=== PATIENT | male | born 1940 | race Caucasian/White ===

== ENCOUNTER → 2017-11-23 14:54 | Outpatient (CLI) | payer MEDICARE, SELFPAY ==
--- NOTE | 2017-11-23 15:00 | RAD_ITS ---
STUDY: X-RAY - LEFT KNEE REASON FOR EXAM: Male, 77 years old. Pain TECHNIQUE: 3 view(s) of the knee. COMPARISON: None. FINDINGS: There is narrowing of the patellofemoral articulation with spurs from the superior and inferior margins of the patella. There are no fractures and no knee joint effusion. The quadriceps and patellar tendons are normal. RAD/Knee 3 Views IMPRESSION: Osteoarthritis of the knee. No knee joint effusion. No fracture Electronically Signed: Nigel Paul MD at 7:42 EDT Tel , Service support ,
== END ==
PROVIDERS: Family Provider Family Medicine; PCP Family Medicine; Referring Provider Family Medicine; Visit Provider Family Medicine
DX: M25.562 Pain in left knee (principal)
CPT/HCPCS: 73562

== ENCOUNTER → 2017-12-08 09:43 | Outpatient (CLI) | payer MEDICARE, SELFPAY ==
[2017-12-08 12:39] LABS: Anion Gap 5 (5-15); BUN 19 mg/dL (7-18); BUN/Creat Ratio 23.2 RATIO (10-20); Calcium,Total 8.7 mg/dL (8.5-10.1); Chloride 108 mmol/L (98-107); Cholesterol 154 mg/dL (200); Creatinine, Serum 0.82 mg/dL (0.70-1.30); EST Glomerular Filtration Rate 98 mL/min (>60); Est Glom Filt Rate - Afr Amer 118 mL/min (>60); Glucose 104 mg/dL (74-106); High Density Lipoprotein 29 mg/dL; Potassium 4.3 mmol/L (3.5-5.1); Sodium Level 139 mmol/L (136-145); Triglycerides 69 mg/dL; Very Low Density Lipoprotein 14 mg/dL (5-40)
== END ==
PROVIDERS: Family Provider Family Medicine; PCP Family Medicine; Visit Provider Family Medicine
DX: Z00.00 Encounter for general adult medical examination without abnormal findings (principal); I10 Essential (primary) hypertension; Z12.5 Encounter for screening for malignant neoplasm of prostate
CPT/HCPCS: 36415; 80048; 80061; 84153; G0103

== ENCOUNTER → 2018-06-26 10:41 | Outpatient (CLI) | payer MEDICARE, SELFPAY ==
--- NOTE | 2018-06-26 10:46 | RAD_ITS ---
STUDY: X-RAY - RIGHT FOOT CLINICAL: Male, 77 years old. Pain on the dorsum of the foot for one year. TECHNIQUE: 3 weight bearing view(s) of the foot. COMPARISON: None. FINDINGS: Normal talus, calcaneus, and tarsal bones. There is mild arthrosis of the visualized subtalar, talonavicular, calcaneocuboid, tarsal and tarsometatarsal articulations. Normal metatarsi. There is degenerative arthrosis of the metatarsophalangeal joint of the hallux . Normal tibial and fibular sesamoid bones. Normal interphalangeal joint of the great toe. Normal phalanges of the great toe. Normal second through fifth metatarsophalangeal joints. Normal interphalangeal joints and phalanges of the lesser toes. The soft tissue structures are unremarkable. RAD/Foot min 3 Views IMPRESSION: Mild degenerative changes of the foot without acute abnormality. Electronically Signed: Marko Roca DO at 18:29 EDT Tel [phone], Service support ,
[2018-06-26 12:59] LABS: Anion Gap 5 (5-15); BUN 17 mg/dL (7-18); BUN/Creat Ratio 20.8 RATIO (10-20); Calcium,Total 8.5 mg/dL (8.5-10.1); Chloride 107 mmol/L (98-107); Cholesterol 155 mg/dL (200); Creatinine, Serum 0.82 mg/dL (0.70-1.30); EST Glomerular Filtration Rate 98 mL/min (>60); Est Glom Filt Rate - Afr Amer 118 mL/min (>60); Glucose 104 mg/dL (74-106); High Density Lipoprotein 33 mg/dL; Potassium 4.2 mmol/L (3.5-5.1); Sodium Level 140 mmol/L (136-145); Triglycerides 103 mg/dL; Very Low Density Lipoprotein 21 mg/dL (5-40)
== END ==
PROVIDERS: Family Provider Family Medicine; PCP Family Medicine; Referring Provider Family Medicine; Visit Provider Family Medicine
DX: M79.671 Pain in right foot (principal); I10 Essential (primary) hypertension
CPT/HCPCS: 36415; 73630; 80048; 80061

== ENCOUNTER → 2018-11-24 12:44 | Outpatient (CLI) | payer MEDICARE, SELFPAY ==
[2018-11-24 14:27] LABS: Absolute Lymphocyte Count 1.97 X10^3/uL (0.83-4.51); Absolute Neutrophil Count 7.4 X10^3/uL (2.0-7.7); Basophil# 0.06 X10^3/uL; Basophil% 0.6 % (0-1); Eosinophil# 0.21 X10^3/uL; Hematocrit 41.2 % (40-54); Hemoglobin 13.5 g/dL (13.0-16.5); Lymphocyte # 1.97 X10^3/ul (4.0); Lymphocyte % 18.3 % (19-41); Mean Corp Hgb Conc 32.8 g/dL (32-36); Mean Corpuscular Hgb 30.7 pg (27.0-32.0); Mean Corpuscular Volume 93.6 fL (80-94); Monocyte# 1.14 X10^3/uL; Monocyte% 10.6 % (0-10); NRBC Flagged by Analyzer 0 % (0-5); Neutrophil # 7.35 X10^3/uL (2.7-7.7); Neutrophil % 68.2 % (47-70); Platelet Count 236 K/mm3 (150-450); RBC Distribution Width CV 12.5 % (11.6-14.6); White Blood Count 10.8 K/mm3 (4.4-11.0)
[2018-11-24 14:40] LABS: Anion Gap 3 (5-15); BUN 20 mg/dL (7-18); BUN/Creat Ratio 23.7 RATIO (10-20); Calcium,Total 8.8 mg/dL (8.5-10.1); Chloride 107 mmol/L (98-107); Creatinine, Serum 0.84 mg/dL (0.70-1.30); EST Glomerular Filtration Rate 94 mL/min (>60); Est Glom Filt Rate - Afr Amer 113 mL/min (>60); Glucose 101 mg/dL (74-106); PSA,Total - Annual Screen 3.24 ng/mL (0.00-4.00); Potassium 4.4 mmol/L (3.5-5.1); Sodium Level 138 mmol/L (136-145)
== END ==
PROVIDERS: Family Provider Family Medicine; PCP Family Medicine; Referring Provider Family Medicine; Visit Provider Family Medicine
DX: R55 Syncope and collapse (principal); N40.0 Benign prostatic hyperplasia without lower urinary tract symptoms; Z12.5 Encounter for screening for malignant neoplasm of prostate
CPT/HCPCS: 36415; 80048; 84153; 85025; G0103

== ENCOUNTER → 2018-12-29 10:57 | Outpatient (CLI) | payer MEDICARE, SELFPAY | PROVIDERS: Family Provider Family Medicine; PCP Family Medicine; Visit Provider Family Medicine | DX: R30.0 Dysuria (principal) | CPT/HCPCS: 87086; 87088; 87186 ==

== ENCOUNTER → 2019-01-11 07:46 | Outpatient (CLI) | payer MEDICARE, SELFPAY ==
--- NOTE | 2019-01-11 07:50 | CT_ITS ---
STUDY: CT ABDOMEN AND PELVIS WITH AND WITHOUT CONTRAST REASON FOR EXAM: Male, 78 years old. 4 week history of gross hematuria. One month history of difficulty with urination. RADIATION DOSAGE (If Supplied By Facility): CTDIvol = ( 27.88 ) mGy, DLP = ( 3812.45 ) mGycm TECHNIQUE: Transaxial images were obtained from the dome of the diaphragm to the symphysis pubis without oral contrast. IV Isovue 370 100CC was administered. Sagittal and coronal images were reconstructed. Individualized dose optimization techniques were used for this CT. COMPARISON: Comparison is made with prior examination of November 26, 2011. FINDINGS: The visualized lung bases are unremarkable. The visualized portions of the heart are within normal limits. Normal liver. Multiple gallstones. Normal spleen. Normal pancreas. Normal bilateral adrenal glands. Normal right kidney. 1.1 Edgar's cyst in the upper pole of the left kidney. 4.4 cm x 3.4 cm cyst in the mid inferior pole of the left kidney. Normal visualized stomach. Normal small intestine. There are multiple colonic diverticula consistent with diverticulosis. The appendix is visualized and appears normal. There is diffuse atherosclerotic calcification of the abdominal aorta, without a demonstrated aneurysm. Normal inferior vena cava. There is borderline retroperitoneal lymphadenopathy with enlarged nodes no greater than 10mm in the short axis diameter. Diffusely thickened wall of the urinary bladder. Air is seen within the urinary bladder. A colovesical fistula should be ruled out. The prostate measures 3.5 cm x 5.3 cm. There is a small umbilical hernia containing fat. Prior mesh repair of a left inguinal hernia. There are diffuse degenerative changes of the visualized lumbar spine. CT/CT Abd/Pelvis W/WO Contrast IMPRESSION: Multiple gallstones. Findings suggestive of a colovesical fistula. Diffuse thickening of the urinary bladder wall with air in the bladder with adjacent severe diverticulosis of the colon. Cystoscopy is recommended. Electronically Signed: Elder Ro, at 13:15 EST , Service support ,
[2019-01-11 08:05] LABS: CREATININE FINGERSTICK 0.9 mg/dL (0.70-1.30); EGFR FINGERSTICK > 60.0000 mL/min (>60)
== END ==
PROVIDERS: Family Provider Family Medicine; PCP Family Medicine; Referring Provider Nurse Practitioner Adult Health; Visit Provider Nurse Practitioner Adult Health
DX: R31.9 Hematuria, unspecified (principal); N40.1 Benign prostatic hyperplasia with lower urinary tract symptoms; N30.01 Acute cystitis with hematuria
CPT/HCPCS: 74178; Q9967

== ENCOUNTER → 2019-01-15 17:15 | Outpatient (CLI) | payer MEDICARE, SELFPAY | PROVIDERS: Family Provider Family Medicine; PCP Family Medicine; Referring Provider Urology; Visit Provider Urology | DX: R82.998 Other abnormal findings in urine (principal) | CPT/HCPCS: 87086; 87088 ==

== ENCOUNTER 2019-01-30 10:51 | Day surgery (SDC) | payer MEDICARE, SELFPAY ==
--- NOTE | 2019-01-30 06:38 | HP.PCM_ITS ---
History and Physical Date of Admission: 01/30/19 HISTORY AND PHYSICAL ? Donald Pascual 1940 ? REFERRING PHYSICIAN: ??Eliazar Marcus ? CHIEF COMPLAINT: ??Consult (Consult Colovesical fistula) ? HPI: The patient is a 78 year old male referred for?colovesical fistula. ?Donald notes blood in his urine and then pneumaturia for the past month. ?The patient denies previous abdominal symptoms consistent with diverticulitis. ?He denies fever or chills. ?He denies loss of appetite or true change in his bowel habits. ? Urine culture from January 15, 2019 demonstrated mixed gram-positive and gram- negative organisms..??The patient was referred to Dr. Vitale.??He performed cystoscopy and noted inflammation with what was felt to be the site of a colovesical fistula down low posteriorly near the trigone area. ? He contacted Dr. Alejandro Landeros who reviewed the CT scan and recommended referral to tertiary care center for repair. ? Dr. Marcus asked?if I would be willing to see the patient in consultation. ?Dr. Plaza yesterday the patient on Bactrim for his positive urine culture. ? The patient has a listed history of COPD but has no pulmonary complaints. ?He chews tobacco. ?He underwent laparoscopic bilateral inguinal hernia. ? By Dr. Alejandro Landeros in December,. ? Donald?has??undergone prior endoscopy. ?He underwent upper endoscopy in 2011. ?There is no record of previous colonoscopy.??The patient recalls he had endoscopy in the early 2009. ? The patient is being seen by me today at the request of ?for my opinion and advice regarding colovesical fistula.? ? ? PAST MEDICAL HISTORY PAST MEDICAL HISTORY Diagnosis Date ? Allergic rhinitis due to pollen ? ? ?- weekly allergy shots, occasional benadryl ? Benign hypertension ? ? Body mass index (bmi) 36.0-36.9, adult ? ? Chronic obstructive lung disease (HCC) ? ? - QVar rx'd by certified hand therapist - pt did not fill ? Claudication (HCC) ? ? Gastroesophageal reflux disease ? ? - omeprazole ? Hyperglycemia ? ? Hyperlipidemia ? ? Hyperlipidemia ? ? ?- crestor weekly ? Hypertension ? ? Hypertensive left ventricular hypertrophy ? ? ?- diagnosis by certified hand therapist 10/2014 - records reviewed ? Multiple joint pain ? ? Nicotine dependence, unspecified, uncomplicated ? ? chews ? Polyosteoarthritis, unspecified ? ? - on naprosyn from certified hand therapist? PAST SURGICAL HISTORY PAST SURGICAL HISTORY Procedure Laterality Date ? COLONOSCOPY ? 2006 ? COLONOSCOPY ? 03/2005 ?? ? due 2016 - Dr. Landeros ? REPAIR INGUINAL HERNIA ? 2004? CURRENT MEDICATIONS Current Outpatient Medications Medication Sig ? sulfamethoxazole-trimethoprim (BACTRIM DS) 800-160 mg per tablet Take 1 tablet by mouth one time only. ? cilostazol (PLETAL) 100 mg tablet Take 100 mg by mouth once daily. ? tamsulosin ER (FLOMAX) 0.4 mg cap Take 0.4 mg by mouth daily at bedtime. ? Cetirizine (ZYRTEC) 10 mg cap Take by mouth. ? losartan (COZAAR) 100 mg tablet Take 1 tablet by mouth once daily. ? amLODIPine (NORVASC) 5 mg tablet Take 1 tablet by mouth once daily. ? naproxen (NAPROSYN) 500 mg tablet Take 500 mg by mouth. Daily As Needed ? diphenhydrAMINE (BENADRYL) 25 mg capsule Take 25 mg by mouth. Daily As Needed ? Omeprazole Magnesium (PRILOSEC OTC) 20 mg tablet Take 20 mg by mouth once daily. ? ? amoxicillin-clavulanic acid (AUGMENTIN) 875-125 mg per tablet Take 1 tablet by mouth twice daily. ? No current facility-administered medications for this visit.? ? ? ALLERGIES:?Satish Inhibitors; Dust; Med-Hist; Pollens Extract; Ikawshn-Rpc-Gdl Reductase Inhibitors ? PERSONAL HISTORY:? SOCIAL HISTORY Social History ? Tobacco Use ? Smoking status: Former Smoker ? Smokeless tobacco: Current User ? Tobacco comment: used to smoke , years ago; Type: chewing; chews 2 cans red seal a week; Substance Use Topics ? Alcohol use: No ? ? Comment: 1 drink every 10 years ? Drug use: No ?? ? FAMILY HISTORY:? FAMILY HISTORY FAMILY HISTORY Problem Relation Age of Onset ? other (Cancer - other [Other]) Other ? ? other (Diabetes mellitus [Other]) Maternal Grandfather ? ? Stroke Mother ? ? ? REVIEW OF SYMPTOMS: ??The review of systems data was entered by the nurse and reviewed by me ? Nursing Notes: Jose Antonio Omer LPN ?01/20/2019 11:46 AM ?Signed REVIEW OF SYSTEMS: ?General:???The patient NOTES fatigue, denies weight loss, denies weight gain, denies feeling hot, and denies feelings of cold. ?Eyes: ?The patient denies glaucoma, denies eye injury/surgery, does not wear glasses or contacts. ?Ear/Nose/Throat: ?The patient NOTES allergies, NOTES hayfever, denies ear infections, and denies bloody noses. ?Cardiovascular: ?The patient denies chest pain, denies heart disease, NOTES high blood pressure,denies cardiac stent, denies prior heart attack, denies irregular heart beat, NOTES high cholesterol, ?denies poor circulation, denies heart failure, other cardiac issues, NOTES claudication, denies cold feet, denies peripheral arterial stent. ?Respiratory: ?The patient denies tuberculosis, NOTES pneumonia, denies frequent cough, denies pulmonary embolism, denies shortness of breath, and denies coughing up blood. ?Gastrointestinal: ?The patient denies difficulty swallowing, NOTES acid reflux, denies ulcers, denies vomiting, denies jaundice/hepatitis, denies gallbladder problems, denies black or tarry stools, denies hemorrhoids, denies bleeding from rectum, denies diverticulitis, denies constipation, denies diarrhea, denies loss of stool control, and NOTES hernias. ?Kidney/Bladder: ?The patient denies kidney stones, NOTES urine infections, and denies bloody urine. ?Skin: ?The patient NOTES a history of skin cancer, denies bleeding/changing moles, and denies a history of skin rash. ?Neurologic: ?The patient denies a history of epilepsy/convulsions, denies headaches, denies head/spinal injuries, and denies stroke/TIA. ?Psychiatric: ?The patient denies psychiatric medications, denies depression, and denies voices, denies substance abuse. ?Endocrine: ?The patient denies thyroid disorders, denies diabetes, and den ies hormonal problems. ?Hematologic: ?The patient denies a history of bruising, denies bleeding, and denies anemia, denies blood clots. ?Infections: ?The patient NOTES a history of measles and mumps, denies rheumatic fever, and denies sexually transmitted diseases. ?Musculoskeletal: ?The patient NOTES back pain/injury, denies back problems, denies sciatica, NOTES knee/foot trouble, NOTES arthritis, or denies gout. ? ? When was patient's last Mammogram screening? N/A ? ?Last Colonoscopy: ?2005 ? ? Jose Antonio Omer LPN ? PHYSICAL EXAMINATION: ? General: ?The patient is 78 year old male, well nourished, well hydrated in no acute distress. ?The patient is oriented to time, place, and person. ? VITALS:?Blood pressure 90/64, pulse 64, temperature 36.7 ?C (98.1 ?F), temperature source Temporal, weight 112.9 kg (248 lb 12.8 oz), SpO2 95 %.?Body mass index is 36.74 kg/m?.? ? HEENT: ?Normal cephalic, ataumatic, pupils are equally round, sclera are anicteric, mucous membranes are moist, oropharynx is clear. ?Neck has no masses, asymmetry or lymphadenopathy. ?Thyroid is unremarkable. ? Respiratory: ?Clear to auscultation and percussion. ?Normal respiratory excursion and pattern. ? Cardiac: ?Examination is regular rate and rhythm. ? Abdominal exam: ?Soft, nontender, ?with no palpable masses. ?No hepatosplenomegaly. ?No palpable hernias. ? Rectal exam:?exam deferred ? Extremities: ?no clubbing, cyanosis or edema. ?No adenopathy. ? Other: ? LABORATORY VALUES: As Noted ? RADIOLOGIC STUDIES: ?As Noted ? Review of the CT scan demonstrates an area of significant thickening than there appears to be an abscess cavity likely was some stool between the low rectosigmoid and the bladder which is thickened and has air within it. ?There are postsurgical changes consistent with bilateral laparoscopic hernias with multiple tacks located in close proximity to the low sigmoid colon. ? ? Assessment ? IMPRESSION:?Pneumaturia, colovesical fistula ? PLAN:? I discussed with the patient that the surgical procedure would likely be complicated due to the fact that he has had previous laparoscopic pelvic surgery, that this fistula seems to have a chronic abscess between the bladder and the colon and that this is a relatively low communication. ?I agreed that most likely this gentleman should be referred to a tertiary care center for repair. ? The patient is reluctant to consider leaving town for surgical intervention. ?He also notes that his had a bad experience on the medicine service at [facility]. ?I discussed with him that my preferred referral source is Dr. Guy at [facility] and I would seek his opinion given his situation. ? I plan to start the patient on Augmentin in addition to his Bactrim. ? ?I plan to perform lower?endoscopy. ??We discussed the risks and benefits of the planned endoscopy. ?I have informed the patient that complications can occur including failure to complete the endoscopy and perforation. ?The patient had the opportunity to ask questions concerning the planned endoscopy. ?My staff has also explained the procedure to the patient in understandable terms and has given the patient printed material concerning the procedure. ?The patient freely consents to surgery. ? I plan to use golytely bowel preparation for endoscopy ? I would likely plan for a very limited barium enema following the colonoscopy to assess whether there is a persistent abscess cavity between the bladder and the colon and to assess whether the fistula leaves the colon and enters the bladder prior to decision about surgical intervention. ? 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 My findings have been communicated to ?via shared medical record. ?This note will be forwarded to Dr. Marisol Ramirez MD (Inactive). ?? Return to Clinic: The patient is instructed to follow-up with me?after the testing has been completed. ? Jim Patel MD
[2019-01-30 11:18] VITALS: BP 134/77; PULSE 89; RESP 18; TEMP 36.6; O2SAT 100; BMI 36.3
[2019-01-30] MEDS: Lactated Ringers 1,000 ML 100 ML IV (11:36)
[2019-01-30 12:37] VITALS: BP 134/77; BP 93/56; PULSE 73; RESP 16; TEMP 36.6; O2SAT 99
--- NOTE | 2019-01-30 12:38 | OP.COLON_ITS ---
Patient Name: Donald Pascual Procedure Date: 01/30/2019 12:02 PM Date of : 1940 Age: 78 Procedure: Colonoscopy Indications: Diverticulitis, Colovesical fistula Providers: Jim Patel MD Referring MD: Joshua Up MD Patient Profile: This is a 78 year old male. Refer to note in patient chart for documentation of history and physical. Last Colonoscopy: date unknown. Unable to locate last colonoscopy report. Complications: No immediate complications. Procedure: Pre-Anesthesia Assessment: - Prior to the procedure, a History and Physical was performed, and patient medications and allergies were reviewed. The patient is competent. The risks and benefits of the procedure and the sedation options and risks were discussed with the patient. All questions were answered and informed consent was obtained. Patient identification and proposed procedure were verified by the physician, the nurse and the anesthesiologist in the procedure room. Mental Status Examination: alert and oriented. Airway Examination: normal oropharyngeal airway and neck mobility. Respiratory Examination: clear to auscultation. CV Examination: normal. Prophylactic Antibiotics: The patient does not require prophylactic antibiotics. Prior Anticoagulants: The patient has taken no previous anticoagulant or antiplatelet agents. ASA Grade Assessment: III - A patient with severe systemic disease. After reviewing the risks and benefits, the patient was deemed in satisfactory condition to undergo the procedure. The anesthesia plan was to use monitored anesthesia care (MAC). Immediately prior to administration of medications, the patient was re-assessed for adequacy to receive sedatives. The heart rate, respiratory rate, oxygen saturations, blood pressure, adequacy of pulmonary ventilation, and response to care were monitored throughout the procedure. The physical status of the patient was re-assessed after the procedure. After I obtained informed consent, the scope was passed under direct vision. Throughout the procedure, the patient's blood pressure, pulse, and oxygen saturations were monitored continuously. The Colonoscope was introduced through the anus and advanced to the cecum, identified by the appendiceal orifice, ileocecal valve and palpation. The colonoscopy was performed without difficulty. The patient tolerated the procedure well. The quality of the bowel preparation was good. Scope In: 12:18:17 PM Scope Withdrawal Time 0 hours 6 minutes 58 seconds Scope Out: 12:33:11 PM Total Procedure Duration Time 0 hours 14 minutes 54 seconds Findings: The perianal and digital rectal examinations were normal. Multiple medium-mouthed diverticula were found in the distal sigmoid colon. Localized mild inflammation characterized by erosions, erythema, granularity and loss of vascularity was found in the recto-sigmoid colon. The retroflexed view of the distal rectum and anal verge was normal and showed no anal or rectal abnormalities. The exam was otherwise without abnormality. Impression: - Diverticulosis in the distal sigmoid colon. - Localized mild inflammation was found in the recto-sigmoid colon. - The distal rectum and anal verge are normal on retroflexion view. - The examination was otherwise normal. - No specimens collected. Recommendation: - Discharge patient to home. - Resume previous diet. - Return to my office in 5 days. - No recommendation at this time regarding repeat colonoscopy. - Continue present medications. Procedure Code(s): --- Professional --- 91890, Colonoscopy, flexible; diagnostic, including collection of specimen(s) by brushing or washing, when performed (separate procedure) CPT copyright 2017 [employer]. All rights reserved. The codes documented in this report are preliminary and upon medical record coder review may be revised to meet current compliance requirements. Jim Patel MD 01/30/2019 12:38:09 PM This report has been signed electronically. Number of Addenda: 0 Note Initiated On: 01/30/2019 12:02 PM
[2019-01-30 12:44] VITALS: BP 106/68; BP 134/77; PULSE 73; RESP 16; O2SAT 97
[2019-01-30 12:49] VITALS: BP 124/73; BP 134/77; PULSE 75; RESP 16; O2SAT 100
[2019-01-30 12:55] VITALS: BP 119/76; BP 134/77; PULSE 75; RESP 16; TEMP 37.1; O2SAT 98
--- NOTE | 2019-01-30 13:06 | RAD_ITS ---
STUDY: BARIUM ENEMA. REASON FOR EXAM: Male, 78 years old. Colovesical fistula. FLUOROSCOPY TIME (if supplied): ( 74 seconds ) minutes/seconds TECHNIQUE: A crisis manager film was obtained. Following this, barium was introduced retrograde through the rectum. The left hemicolon was opacified. COMPARISON: None. FINDINGS: There is evidence of diffuse sigmoid diverticulosis with an area of narrowing suggestive of a diverticulitis. On the delayed images, there appears to be extravasation of contrast. The bladder is not opacified. RAD/Barium Enema No Air Cont IMPRESSION: Extensive diverticulosis with focal area of narrowing suggestive of diverticulitis and possible peridiverticular leak. Electronically Signed: Elder Ro, at 15:32 EST , Service support ,
[2019-01-30 13:15] VITALS: BP 134/77
== END 2019-01-30 13:10 | disposition home or self-care (01) ==
LOC: EN 10:52 → AC 10:54
PROVIDERS: Family Provider Family Medicine; PCP Family Medicine; Referring Provider Family Medicine; Visit Provider Surgery
PROC: 0DJD8ZZ Inspection of Lower Intestinal Tract, Via Natural or Artificial Opening Endoscopic (ICD-10-PCS; CPT 45378; principal; 2019-01-30 11:55)
DX: K57.30 Diverticulosis of large intestine without perforation or abscess without bleeding (principal); R39.89 Other symptoms and signs involving the genitourinary system; I11.9 Hypertensive heart disease without heart failure; J44.9 Chronic obstructive pulmonary disease, unspecified; K21.9 Gastro-esophageal reflux disease without esophagitis; E78.5 Hyperlipidemia, unspecified; M15.9 Polyosteoarthritis, unspecified; J30.1 Allergic rhinitis due to pollen; F17.220 Nicotine dependence, chewing tobacco, uncomplicated
CPT/HCPCS: 45378; 74270; J7120

== ENCOUNTER → 2019-02-15 15:15 | Outpatient (CLI) | payer MEDICARE, SELFPAY ==
[2019-01-30 11:18] VITALS: BMI 36.3
[2019-02-15 17:43] LABS: ALB/GLOB Ratio 0.8 RATIO (0.9-2.4); AST(SGOT) 16 U/L (15-37); Alanine Aminotransfer ALT/SGPT 19 U/L (16-61); Albumin, Serum 3.3 g/dL (3.2-5.0); Alkaline Phosphatase 78 U/L (45-117); Anion Gap 7 (5-15); BUN 19 mg/dL (7-18); BUN/Creat Ratio 20.5 RATIO (10-20); Calcium,Total 8.4 mg/dL (8.5-10.1); Chloride 107 mmol/L (98-107); Creatinine, Serum 0.93 mg/dL (0.70-1.30); EST Glomerular Filtration Rate 84 mL/min (>60); Est Glom Filt Rate - Afr Amer 102 mL/min (>60); Glucose 122 mg/dL (74-106); Potassium 3.8 mmol/L (3.5-5.1); Protein, Total 7.3 g/dL (6.4-8.2); Sodium Level 140 mmol/L (136-145)
[2019-02-15 17:47] LABS: Absolute Lymphocyte Count 1.91 X10^3/uL (0.83-4.51); Absolute Neutrophil Count 6.1 X10^3/uL (2.0-7.7); Basophil# 0.07 X10^3/uL; Basophil% 0.8 % (0-1); Eosinophil# 0.32 X10^3/uL; Eosinophils% 3.5 % (0-5); Hematocrit 39.8 % (40-54); Hemoglobin 12.8 g/dL (13.0-16.5); Lymphocyte # 1.91 X10^3/ul (4.0); Lymphocyte % 20.6 % (19-41); Mean Corp Hgb Conc 32.2 g/dL (32-36); Mean Corpuscular Hgb 29.9 pg (27.0-32.0); Mean Platelet Vol. 9.6 fl (6.2-12.0); Monocyte# 0.81 X10^3/uL; Monocyte% 8.7 % (0-10); NRBC Flagged by Analyzer 0 % (0-5); Neutrophil # 6.12 X10^3/uL (2.7-7.7); Platelet Count 240 K/mm3 (150-450); RBC Distribution Width CV 13.9 % (11.6-14.6); Red Blood Count 4.28 M/mm3 (4.6-6.2); White Blood Count 9.3 K/mm3 (4.4-11.0)
== END ==
PROVIDERS: Family Provider Family Medicine; PCP Family Medicine; Referring Provider Family Medicine; Visit Provider Family Medicine
DX: Z01.818 Encounter for other preprocedural examination (principal)
CPT/HCPCS: 36415; 80053; 85025

== ENCOUNTER → 2019-07-02 10:09 | Outpatient (CLI) | payer MEDICARE, SELFPAY ==
[2019-07-02 12:42] LABS: Anion Gap 5 (5-15); BUN 16 mg/dL (7-18); BUN/Creat Ratio 19.6 RATIO (10-20); Calcium,Total 8.9 mg/dL (8.5-10.1); Chloride 107 mmol/L (98-107); Cholesterol 166 mg/dL (200); Creatinine, Serum 0.82 mg/dL (0.70-1.30); EST Glomerular Filtration Rate 97 mL/min (>60); Est Glom Filt Rate - Afr Amer 118 mL/min (>60); Glucose 107 mg/dL (74-106); High Density Lipoprotein 38 mg/dL; Sodium Level 139 mmol/L (136-145); Triglycerides 80 mg/dL; Very Low Density Lipoprotein 16 mg/dL (5-40)
== END ==
PROVIDERS: PCP Family Medicine; Visit Provider Family Medicine
DX: I10 Essential (primary) hypertension (principal)
CPT/HCPCS: 36415; 80048; 80061

== ENCOUNTER → 2019-12-31 10:02 | Outpatient (CLI) | payer MEDICARE, SELFPAY ==
[2019-12-31 13:04] LABS: Anion Gap 5 (5-15); BUN 16 mg/dL (7-18); BUN/Creat Ratio 17.5 RATIO (10-20); Calcium,Total 8.7 mg/dL (8.5-10.1); Chloride 105 mmol/L (98-107); Cholesterol 159 mg/dL (200); Creatinine, Serum 0.92 mg/dL (0.70-1.30); EST Glomerular Filtration Rate 85 mL/min (>60); Est Glom Filt Rate - Afr Amer 103 mL/min (>60); Glucose 102 mg/dL (74-106); High Density Lipoprotein 45 mg/dL; Potassium 4.3 mmol/L (3.5-5.1); Sodium Level 138 mmol/L (136-145); Triglycerides 64 mg/dL; Very Low Density Lipoprotein 13 mg/dL (5-40)
== END ==
PROVIDERS: PCP Family Medicine; Visit Provider Family Medicine
DX: I10 Essential (primary) hypertension (principal)
CPT/HCPCS: 36415; 80048; 80061

== ENCOUNTER → 2020-05-23 | Outpatient (CLI) | payer MEDICARE, SELFPAY | END | disposition home or self-care (01) | LOC: LABSPEC 08:24 | PROVIDERS: PCP Family Medicine; Referring Provider Family Medicine; Visit Provider Family Medicine | DX: R19.7 Diarrhea, unspecified (principal) | CPT/HCPCS: 87493; 87506 ==

== ENCOUNTER → 2020-06-30 10:05 | Outpatient (CLI) | payer MEDICARE, SELFPAY ==
--- NOTE | 2020-06-30 10:08 | RAD_ITS ---
STUDY: X-RAY - RIGHT SHOULDER REASON FOR EXAM: Male, 79 years old. PAIN TECHNIQUE: 4 view(s) of the shoulder. COMPARISON: None. FINDINGS: No acute fracture, dislocation or osseous destruction. Osteopenia. Moderate acromioclavicular joint arthrosis. Moderate glenohumeral joint arthrosis. No significant soft tissue swelling. RAD/Shoulder min 2 Views IMPRESSION: Right shoulder intact with moderate osteoarthritis Electronically Signed: Dom Tesfaye DO at 10:42 EDT Tel , Service support ,
[2020-06-30 12:43] LABS: Anion Gap 7 (5-15); BUN 18 mg/dL (7-18); BUN/Creat Ratio 22.5 RATIO (10-20); Calcium,Total 8.7 mg/dL (8.5-10.1); Chloride 106 mmol/L (98-107); Cholesterol 171 mg/dL (200); EST Glomerular Filtration Rate 99 mL/min (>60); Est Glom Filt Rate - Afr Amer 120 mL/min (>60); Glucose 104 mg/dL (74-106); High Density Lipoprotein 45 mg/dL; Potassium 4.1 mmol/L (3.5-5.1); Sodium Level 140 mmol/L (136-145); Triglycerides 71 mg/dL; Very Low Density Lipoprotein 14 mg/dL (5-40)
== END ==
PROVIDERS: PCP Family Medicine; Referring Provider Family Medicine; Visit Provider Family Medicine
DX: M25.511 Pain in right shoulder (principal); I10 Essential (primary) hypertension
CPT/HCPCS: 36415; 73030; 80048; 80061

== ENCOUNTER → 2020-12-31 10:14 | Outpatient (CLI) | payer MEDICARE, SELFPAY ==
[2020-12-31 12:34] LABS: ALB/GLOB Ratio 0.9 RATIO (0.9-2.4); AST(SGOT) 13 U/L (15-37); Alanine Aminotransfer ALT/SGPT 16 U/L (16-61); Albumin, Serum 3.3 g/dL (3.2-5.0); Alkaline Phosphatase 77 U/L (45-117); Anion Gap 5 (5-15); BUN 12 mg/dL (7-18); BUN/Creat Ratio 16.3 RATIO (10-20); Calcium,Total 8.8 mg/dL (8.5-10.1); Chloride 106 mmol/L (98-107); Cholesterol 160 mg/dL (200); Creatinine, Serum 0.74 mg/dL (0.70-1.30); EST Glomerular Filtration Rate 109 mL/min (>60); Est Glom Filt Rate - Afr Amer 132 mL/min (>60); Globulin 3.8 g/dL (2.2-4.2); Glucose 106 mg/dL (74-106); High Density Lipoprotein 39 mg/dL; PSA,Total - Annual Screen 3.25 ng/mL (0.00-4.00); Potassium 3.9 mmol/L (3.5-5.1); Protein, Total 7.1 g/dL (6.4-8.2); Sodium Level 138 mmol/L (136-145); Triglycerides 78 mg/dL; Very Low Density Lipoprotein 16 mg/dL (5-40)
== END ==
PROVIDERS: PCP Family Medicine; Referring Provider Family Medicine; Visit Provider Family Medicine
DX: I10 Essential (primary) hypertension (principal); Z12.5 Encounter for screening for malignant neoplasm of prostate
CPT/HCPCS: 36415; 80053; 80061; 84153; G0103

== ENCOUNTER → 2021-07-01 | Outpatient (CLI) | payer MEDICARE, SELFPAY ==
[2021-07-01 10:19] LABS: Microalbumin,Random Urine < 5.0 mg/L (NO RANGE EST.)
[2021-07-01 10:34] LABS: Anion Gap 1 (5-15); BUN 19 mg/dL (7-18); BUN/Creat Ratio 24.7 RATIO (10-20); Calcium,Total 9.1 mg/dL (8.5-10.1); Chloride 107 mmol/L (98-107); Cholesterol 172 mg/dL (200); Creatinine, Serum 0.77 mg/dL (0.70-1.30); EST Glomerular Filtration Rate 104 mL/min (>60); Est Glom Filt Rate - Afr Amer 125 mL/min (>60); Glucose 102 mg/dL (74-106); High Density Lipoprotein 41 mg/dL; Potassium 4.3 mmol/L (3.5-5.1); Sodium Level 137 mmol/L (136-145); Triglycerides 72 mg/dL; Very Low Density Lipoprotein 14 mg/dL (5-40)
== END | disposition home or self-care (01) ==
LOC: MFPLAB 09:29
PROVIDERS: PCP Family Medicine; Referring Provider Family Medicine; Visit Provider Family Medicine
DX: I10 Essential (primary) hypertension (principal)
CPT/HCPCS: 36415; 80048; 80061; 82043; 82570

== ENCOUNTER → 2021-12-30 | Outpatient (CLI) | payer MEDICARE, SELFPAY ==
[2021-12-30 10:59] LABS: Anion Gap 5 (5-15); BUN 17 mg/dL (7-18); BUN/Creat Ratio 25.9 RATIO (10-20); Calcium,Total 9.1 mg/dL (8.5-10.1); Chloride 106 mmol/L (98-107); Creatinine, Serum 0.66 mg/dL (0.70-1.30); EST Glomerular Filtration Rate 124 mL/min (>60); Est Glom Filt Rate - Afr Amer 150 mL/min (>60); Glucose 93 mg/dL (74-106); PSA,Total - Annual Screen 2.98 ng/mL (0.00-4.00); Potassium 3.8 mmol/L (3.5-5.1); Sodium Level 138 mmol/L (136-145)
== END | disposition home or self-care (01) ==
LOC: MFPLAB 08:56
PROVIDERS: PCP Family Medicine; Referring Provider Family Medicine; Visit Provider Family Medicine
DX: I10 Essential (primary) hypertension (principal); Z12.5 Encounter for screening for malignant neoplasm of prostate
CPT/HCPCS: 36415; 80048; 84153; G0103

== ENCOUNTER → 2022-06-28 | Outpatient (CLI) | payer MEDICARE, SELFPAY ==
[2022-06-28 11:01] LABS: Anion Gap 5 (5-15); BUN 20 mg/dL (7-18); Calcium,Total 9.2 mg/dL (8.5-10.1); Chloride 106 mmol/L (98-107); Cholesterol 172 mg/dL (200); Creatinine, Serum 0.83 mg/dL (0.70-1.30); EST Glomerular Filtration Rate 94 mL/min (>60); Est Glom Filt Rate - Afr Amer 114 mL/min (>60); Glucose 97 mg/dL (74-106); High Density Lipoprotein 39 mg/dL; PSA,Total- Diagnostic 2.69 ng/mL (0.0-4.0); Sodium Level 138 mmol/L (136-145); Triglycerides 72 mg/dL; Very Low Density Lipoprotein 14 mg/dL (5-40)
== END | disposition home or self-care (01) ==
LOC: MFPLAB 08:42
PROVIDERS: PCP Family Medicine; Visit Provider Family Medicine
DX: N40.0 Benign prostatic hyperplasia without lower urinary tract symptoms (principal); I10 Essential (primary) hypertension
CPT/HCPCS: 36415; 80048; 80061; 84153

== ENCOUNTER → 2022-12-29 | Outpatient (CLI) | payer MEDICARE, SELFPAY ==
[2022-12-29 11:20] LABS: Anion Gap 6 (5-15); BUN 18 mg/dL (7-18); BUN/Creat Ratio 24.3 RATIO (10-20); Chloride 107 mmol/L (98-107); Cholesterol 144 mg/dL (200); Creatinine, Serum 0.74 mg/dL (0.70-1.30); EST Glomerular Filtration Rate 108 mL/min (>60); Est Glom Filt Rate - Afr Amer 131 mL/min (>60); Glucose 96 mg/dL (74-106); High Density Lipoprotein 38 mg/dL; Potassium 3.8 mmol/L (3.5-5.1); Sodium Level 140 mmol/L (136-145); Triglycerides 63 mg/dL; Very Low Density Lipoprotein 13 mg/dL (5-40)
[2022-12-29 11:21] LABS: Microalbumin,Random Urine 10.1 mg/L (NO RANGE EST.); Microalbumin:Creatinine Ratio 8.9 mg/g CRE (<30 mg/g CRE)
== END | disposition home or self-care (01) ==
LOC: MFPLAB 08:53
PROVIDERS: PCP Family Medicine; Visit Provider Family Medicine
DX: I10 Essential (primary) hypertension (principal)
CPT/HCPCS: 36415; 80048; 80061; 82043; 82570

== ENCOUNTER → 2023-04-05 | Outpatient (CLI) | payer MEDICARE, SELFPAY ==
--- NOTE | 2023-04-05 08:04 | CT_ITS ---
CT RIGHT LOWER EXTREMITY WITH 3-D IMAGING CLINICAL INDICATION: Pain. TECHNIQUE: Axial CT images of the right lower extremity (including right hip, right knee, and right ankle) was performed without IV contrast material. Coronal and sagittal reformats were provided. RADIATION DOSAGE (If Supplied By Facility): CTDIvol = ( 18.76 ) mGy, DLP = ( 1365.5 ) mGycm COMPARISON: Right knee radiographs dated 09/18/2014. FINDINGS: Bones: There is mild degenerative arthrosis of the right hip joint with joint space narrowing and small marginal osteophyte formation. There is a concave deformity of the medial tibial plateau of the right knee with small adjacent displaced osseous fragments, compatible with medial tibial plateau fracture. There is tricompartment degenerative arthrosis of the right knee joint with joint space narrowing, marginal osteophyte formation, and subchondral cyst formation. There is degenerative arthrosis in the right midfoot. Osseous structures are otherwise normal without evidence of fracture or dislocation. No lytic or blastic osseous masses. Soft Tissues: There is a moderate right knee joint effusion. The deep soft tissue structures are unremarkable. The superficial soft tissues are unremarkable without evidence of edema, hematoma, or foreign body. CT/Extremity Lower without Contra IMPRESSION: Concave deformity of the medial tibial plateau of the right knee with small adjacent displaced osseous fragments, compatible with medial tibial plateau fracture. Tricompartment degenerative arthrosis of the right knee joint. Moderate knee joint effusion. Electronically Signed: Rafael Sanchez MD at 12:17 EST ,
--- OUTSIDE RECORDS SUMMARY | 2023-04-05 08:14 | XMS RPT_ITS | CCD ---
Author Name Unknown Address [address] [place] [address] Organization [facility] Results Test Name Value Interpretation Reference Range Facil ity Clinical Note 04-10-2020 Note Date & Type Note Facility 04-10-2020 Note Patient Outreach ([facility]) LORI SAM ([id number]) 1940 M Date Time Provider Department 04/10/20 RAMINSHAL During your visit today, we recorded the following information about you: Allergies As of Date: 04/10/2020 Noted Allergy Reaction MAYTE INHIBITORS 10/17/2015 3 - Cough 14 - Other: See Comments Comments: Adverse Reaction DUST 10/17/2015 14 - Other: See Comments Comments: Other allergic reaction nasal congestion MED-HIST 10/17/2015 16 - Unknown Comments: animals Other allergic reaction nasal congestion, sneeze receives weekly allergy shots - POLLENS EXTRACT 10/17/2015 14 - Other: See Comments Comments: Other allergic reaction nasal congestion, sneeze [id number] REDUCTASE INHIBIT*10/17/2015 14 - Other: See Comments Comments: Adverse Reaction also crestor at any does higher than 5 mg weekly causes a reaction Date Reviewed: 02/04/2019 Reviewed by: Jim Patel - Fully Assessed Order(s):SARS-COVID VACCINE 1ST DOSE APPT [[id number]] Order #: [id number] FUTURE Prescriptions as of 04/10/2020 Sig: SULFAMETHOXAZOLE 800 MG-TRIME* Take 1 tablet by mouth one ti* CILOSTAZOL 100 MG TABLET Take 100 mg by mouth once kaia* TAMSULOSIN 0.4 MG CAPSULE Take 0.4 mg by mouth daily at* ZYRTEC 10 MG CAPSULE Take by mouth. AMOXICILLIN 875 MG-POTASSIUM * Take 1 tablet by mouth twice * LOSARTAN 100 MG TABLET Take 1 tablet by mouth once d* AMLODIPINE 5 MG TABLET Take 1 tablet by mouth once d* NAPROXEN 500 MG TABLET Take 500 mg by mouth. Daily A* DIPHENHYDRAMINE 25 MG CAPSULE Take 25 mg by mouth. Daily As* * OMEPRAZOLE MAGNESIUM 20 MG TA* Take 20 mg by mouth once ashley* Problem List As Of Date 04/10/2020 Noted Resolved Bilateral inguinal hernia (BIH) [K40.20] 01/12/2012 Letter Text Encounter Status:Closed by LITO, PRODUSER on 04/14/20 [facility] Summary Purpose Family History No Family History Records FoundNo Family History Records Found Advance Directives No Advanced Directives Records FoundNo Advanced Directives Records Found Additional Source Comments (unrecognized sect ion and content) No Status Records FoundNo Status Records Found INFORMATION SOURCE (unrecogn ized section and content) DATE CREATED AUTHOR AUTHOR'S ORGANIZ ATION 03/31/2021 [facility] FOR RECORDS PERTAINING TO PATIENTS WHO ARE OR HAVE BEEN ENROLLED IN A CHEMICAL DEPENDENCY/SUBSTANCEABUSE PROGRAM, SOME INFORMATION MAY BE OMITTED. This clinical summary was aggregated from multiple sources. Caution should be exercised in using it in the provision of clinical care. This summary normalizes information from multiple sources, and as a consequence, information in this document may materially change the coding, format and clinical context of patient data. In addition, data may be omitted in some cases. CLINICAL DECISIONS SHOULD BE BASED ON THE PRIMARY CLINICAL RECORDS. [employer] [facility]. provides no warranty or guarantee of the accuracy or completeness of information in this document.
== END | disposition home or self-care (01) ==
LOC: CT 07:52
PROVIDERS: PCP Family Medicine; Referring Provider Specialist; Visit Provider Specialist
DX: M21.161 Varus deformity, not elsewhere classified, right knee (principal)
CPT/HCPCS: 73700; 93005

== ENCOUNTER 2023-04-27 06:56 | Observation (INO) | payer MEDICARE, SELFPAY ==
[2023-04-05 09:27] LABS: Absolute Lymphocyte Count 1.83 X10^3/uL (0.83-4.51); Absolute Neutrophil Count 3.4 X10^3/uL (2.0-7.7); Basophil# 0.07 X10^3/uL; Basophil% 1.1 % (0-1); Eosinophils% 4.7 % (0-5); Hematocrit 41.2 % (40-54); Hemoglobin 13.9 g/dL (13.0-16.5); Lymphocyte # 1.83 X10^3/ul (0.83-4.51); Lymphocyte % 28.8 % (19-41); Mean Corp Hgb Conc 33.7 g/dL (32-36); Mean Corpuscular Hgb 32.4 pg (27.0-32.0); Mean Platelet Vol. 9.9 fl (6.2-12.0); Monocyte# 0.75 X10^3/uL; Monocyte% 11.8 % (0-10); NRBC Flagged by Analyzer 0 % (0-5); Neutrophil # 3.38 X10^3/uL (2.7-7.7); Neutrophil % 53.3 % (47-70); Platelet Count 200 K/mm3 (150-450); RBC Distribution Width CV 12.4 % (11.6-14.6); RBC Distribution Width SD 43.3 fl (35.1-43.9); Red Blood Count 4.29 M/mm3 (4.6-6.2); White Blood Count 6.4 K/mm3 (4.4-11.0)
[2023-04-05 10:44] LABS: Albumin, Serum 3.6 g/dL (3.2-5.0); Anion Gap 4 (5-15); BUN 19 mg/dL (7-18); BUN/Creat Ratio 26.8 RATIO (10-20); Calcium,Total 9.3 mg/dL (8.5-10.1); Chloride 109 mmol/L (98-107); Creatinine, Serum 0.71 mg/dL (0.70-1.30); EST Glomerular Filtration Rate 114 mL/min (>60); Est Glom Filt Rate - Afr Amer 138 mL/min (>60); Glucose 103 mg/dL (74-106); Potassium 3.8 mmol/L (3.5-5.1); Sodium Level 137 mmol/L (136-145)
[2023-04-05 10:46] LABS: Magnesium 2.2 mg/dL (1.6-2.6)
--- NOTE | 2023-04-21 05:55 | HP.PCM_ITS ---
History and Physical History and Physical? Patient Name: Donald Pascual : 1940 From:? MAL WINCHESTER PA-C? DATE OF PRE-OPERATIVE EXAM: 04/18/2023 DATE OF SURGERY:? 04/27/2023 SCHEDULED PROCEDURE:? Right total knee arthroplasty HISTORY OF PRESENT ILLNESS: Preoperative history and physical exam was performed on April 18, 2023.? This is a 82-year-old male who is been having ongoing pain for over 10 years.? Patient's pain has been constant, aching and sharp.? Pain can reach 9/10 with activities.? Pain is increased with going up and down stairs, walking and sitting.? He does have start up pain.? Patient has stumbled secondary to the knee pain.? Pain is located over the medial joint line.? Pain does awaken him at nighttime.? Patient denies past history of surgery on the right knee.? He has tried oral medications including naproxen, Tylenol with minimal relief.? He has also tried rest, elevation, corticosteroid injection with minimal relief.? Patient has had multiple corticosteroid injections.? He has intermittent pain on the left knee.? He has been through previous physical therapy.? He uses a cane or walker for ambulatory assistance.? Patient has had clearance from primary care physician Dr. Up.? After failing conservative measures and discussing all treatment options with Dr. Paulo Roca, the patient does wish to proceed with a right total knee arthroplasty.? He denies any recent fevers, chills, recent infections.? No recent chest pain or shortness of breath.? Patient has medical history pertinent for hypertension, hypercholesterolemia, and benign prostatic hyperplasia.? He is currently on Flomax.? Patient denies past history of DVT or pulmonary embolism. REVIEW OF SYSTEMS: Review Of Systems: Constitutional: Reports difficulty sleepingDenies change in appetite, fever, hard of hearing, vision problems and weight change Cardiovasular: Reports heart murmur, but denies chest pain, irregular heartbeat and peripheral vascular disease. Respiratory: Reports pneumonia, but denies asthma, cough, sleep apnea, shortness of breath, tuberculosis and wheezing. Gastrointestinal: Denies constipation, diarrhea, heartburn, nausea, rectal itching, bloody stools and vomiting. Genitourinary: Denies incontinence. Musculoskeletal: Reports trouble walking, but denies leg swelling, pain and weakness. Skin: Denies Raynaud's, history of shingles and tattoo. Neurological: Denies ambulatory dysfunction, dizziness, numbness/tingling and tremor. Psychiatric: Denies anxiety, depression, insomnia, mental illness and stress. Hematologic/Lymphatic: Denies anemia, bleeding/bruising tendency and past transfusion. Reviewed, no changes. PAST MEDICAL HISTORY: Advance Care Plan: Other Directive, LIVING WILL Effective Date: 04/18/2023 Past Medical History: Medical Problems: Arthritis, High Blood Pressure, Hypercholesterolemia, Benign prostatic hyperplasia Accidents: None Surgical Hx: Hernia Repair Skin Cancer - PRECANCEROUS CELLS FROZEN OFF 4-5 YEARS AGO Colon Resection - (02/2019) FISTULA REMOVAL RENEE CANTON? Anesthesia Complications: None Assistive Devices: Glasses Reviewed and updated. SOCIAL HISTORY: Social History: Marital: .Occupation: Retired.Work Status: Retired.Hand Dominance: Right- handed. Personal Habits:? Cigarette Use: Pipe Use.Smokeless Tobacco: Current Smokeless Tobacco User.E-Cigarette Use: Never used.Alcohol: Has consumed alcohol in the past.Drug Use: Denies Use.Enjoy Exercising: Daily. Reviewed, no changes. VITALS: Ht: 67.7 Wt: 229lb Wt k.874 BMI: 35.1 BP: 122/78 Pulse: 78 Resp: 14 T: 97.5 T: 36.4C Pain Level: 8 O2SatR: 94 ALLERGIES: Codeine? MEDICATIONS: Omeprazole 20 mg 1 by mouth every day, Losartan Potassium 100 mg 1 by mouth every day, Amlodipine Besylate 5 mg 1 by mouth every day, Tamsulosin HCL 0.4 mg 1 by mouth every day, Naproxen 500 mg 1 by mouth twice a day as needed with food, Cilostazol 50 mg take 1 tablet by mouth twice daily PRE-OP EXAM:? General appearance:NORMAL? ? ? Other: Eyes: Conjunctivae and lids: NORMAL? Pupils: ERR Ears, Nose, Mouth, and Throat: NORMAL? Other: Inspection of lips, teeth and gums: NORMAL? ?Other: Neck: Examination of neck: no masses noted. Respiratory: Assessment of respiratory effort: NORMAL? ?Other: ?Auscultation of lungs: clear to auscultation no wheezes, rhonchi or rales. Cardiovascular:? Auscultation of heart: regular rate and rhythm, no murmurs, gallops or rubs. PHYSICAL EXAMINATION: On exam patient does walk with an antalgic gait with use of cane.? There is tenderness to palpation along the medial joint line of the right knee.? He has moderate effusion.? He has correctable varus alignment with the right knee.? Range of motion lacks 5 full extension to 115 flexion.? Stable to anterior/posterior drawer exam with firm endpoint.? 4 mm medial collateral laxity.? Sensation intact to light touch. IMAGING STUDIES: Previous x-rays of the right knee reveal varus alignment with medial joint space narrowing, subchondral sclerosis, osteophyte formation consistent with severe stage IV bone on bone osteoarthritis.? There is medial tibial bony erosions and lateral subluxation of the tibia.? 50% lateral subluxation of the medial tibial condyle with bony erosion of the medial aspect of the medial tibial plateau.? The left knee also reveals varus alignment with severe stage IV tricompartmental osteoarthritis. IMPRESSION: 1.? Severe right knee osteoarthritis with varus deformity 2.? Severe left knee osteoarthritis with varus deformity 3.? Hypertension? 4.? Hypercholesterolemia 5.? Benign prostatic hyperplasia 6.? Obesity with BMI 35.1 PLAN: Dr. Paulo Roca did discuss and review with the patient all treatment options including surgical versus nonsurgical options.? Patient does wish to proceed with the above-stated procedure.? Potential risks, benefits, and complications of the procedure were discussed in detail including but not limited to , infection, nerve and blood vessel damage, persistent pain, numbness, tingling, paresthesias, blood clot, pulmonary embolism, and requirement for possible further surgery.? The patient expressed full understanding and has no further questions for the doctor.? Patient does agree to proceed with the above-stated procedure and has signed the surgery consent form. POST-OP MEDICATION PLAN: Pain Medications:? Postoperative pain regimen will be initiated by Dr. Paulo Roca at the hospital.? I did discuss with the patient the importance of remaining on his Flomax due to the risk of urinary retention postoperatively.? He voiced understanding.? He has walker that he will bring to hospital. DVT Prophylaxis:? Aspirin 81 mg twice daily for 4 weeks postoperatively.? Denies past history of DVT or pulmonary embolism This dictation was created using voice recognition software. Phonetic and/or grammatical errors may exist. ___? I have re-examined the patient.? There are no clinical changes since date of exam. ___? See progress notes for changes. ___? Dictated on admission Date: ? ? ?Time: Signature:
[2023-04-27] VITALS (15 sets, daily range): BP systolic 93–138; BP diastolic 55–82; PULSE 67–76; RESP 16–18; TEMP 36–36.8; O2SAT 94–100; BMI 32.8
--- OUTSIDE RECORDS SUMMARY | 2023-04-27 05:21 | XMS RPT_ITS | CCD ---
Author Name Unknown Address [address] [place] [address] Organization [facility] Results Test Name Value Interpretation Reference Range Facil ity Clinical Note 04-10-2020 Note Date & Type Note Facility 04-10-2020 Note Patient Outreach ([facility]) LORI SAM ([id number]) 1940 M Date Time Provider Department 04/10/20 [...] Comments: Other allergic reaction nasal congestion, sneeze [id number]-DDA-IYM REDUCTASE INHIBIT*10/17/2015 14 - Other: See Comments Comments: Adverse Reaction also crestor at any does higher than 5 mg weekly causes a reaction Date Reviewed: 02/04/2019 Reviewed by: Jim Patel - Fully Assessed Order(s):SARS-COVID VACCINE 1ST DOSE APPT [[id number]] Order #: [id number] FUTURE Prescriptions as of 04/10/2020 Sig: SULFAMETHOXAZOLE [...] Encounter Status:Closed by LITO, PRODUSER on 04/14/20 [facility] Summary Purpose Family History No Family History Records FoundNo Family History Records Found Advance Directives No Advanced Directives Records FoundNo Advanced Directives Records Found Additional Source Comments (unrecognized sect ion and content) No Status Records FoundNo Status Records Found INFORMATION SOURCE (unrecogn ized section and content) DATE CREATED AUTHOR AUTHOR'S ORGANIZ ATION 03/31/2021 [facility] FOR RECORDS PERTAINING TO PATIENTS WHO [...] BE BASED ON THE PRIMARY CLINICAL RECORDS. [facility]. provides no warranty or guarantee of the accuracy or completeness of information in this document.
[2023-04-27] MEDS: Lactated Ringers 1,000 ML 999 ML IV ×2 (05:50→09:21)
[2023-04-27] MEDS: Magnesium 1 GM over 15 mins IV (05:55)
[2023-04-27] MEDS: Acetaminophen 500 MG Tablet 1000 MG PO ×3 (06:42→22:08)
[2023-04-27] MEDS: Celecoxib 200 MG Capsule 400 MG PO (06:43)
[2023-04-27] MEDS: Gabapentin 600 MG Tablet PO (06:43)
[2023-04-27] MEDS: Lactated Ringers 1,000 ML 75 ML IV (06:46)
--- NOTE | 2023-04-27 07:30 | KNEE_PTH ---
PATHOLOGY RESULTS PATIENT: LORI SAM LOC: MS3 U#:[id number] AGE/SX: 82/M ROOM: LA321 RE04/27/[address]: Dr. Paulo Roca MD : 1940 BED: 1 DIS: 04/28/2023 SPEC #: [id number] RECD: 04/27/23 12:58 STATUS: ANGELA RECarlos #: [id number] DAYRON: 04/27/23 07:[address]: Paulo Roca DEPT: SURGICAL PATHOLOGY RECD BY: Bee Flores ENTERED: 04/27/23 12:58 SP TYPE: TOTAL KNEE OTHR DR: DO Dr. Nel Feliciano MD Dr. Ama Paintsil, MD Dr. Nicholas F Kotsonis, MD Dr. Paul Nielsen, MD Tissues: Knee, NOS Procedures: Decalcification bone/plaque Surgery Specimen Level IV HEADER OPERATION: Robotic arm assisted total knee replacement PRE-OP DIAGNOSIS: Osteoarthritis of right knee TISSUE SUBMITTED: Right knee bone and tissue MICROSCOPIC DIAGNOSIS Bone and tissue of right knee, total knee resection: Severe degenerative joint disease. Mild synovial hyperplasia. AM:vicente 05/02/2023 MICROSCOPIC DESCRIPTION Slides are reviewed. GROSS DESCRIPTION Received is one container designated bone and tissue right knee. The specimen consists of multiple fragments of gamez-yellow bone measuring in aggregate 10.0 x 10.0 x 4.0 cm. Also in the specimen container are multiple fragments of fibrocartilaginous tissue measuring in aggregate 8.0 x 4.0 x 2.0 cm. A number of bony fragments contain articular surfaces consistent with tibial plateau and femoral condyle and displaying prominent osteophyte formation, eburnation and bone erosion. Clinical Quality Analyst sections are submitted in two cassettes as follows: 1 - soft tissue, 2 - bone after decalcification. / SJ:vicente 04/27/2023 TC:5 CPT: 22576, [id number]
[2023-04-27] MEDS: Cefazolin 2 GM in 0.9% Normal Saline (100mL Bag) 100 ML IV (07:33)
[2023-04-27] MEDS: TXA 1000mg in NS100 100ml (IVPB at Incision) 660 MG IV (07:42)
[2023-04-27] MEDS: dexAMETHasone 10 MG/ML Vial IV (07:53)
[2023-04-27] MEDS: TXA 1000mg in NS100 100ml (IVPB at Closure) 660 MG IV (08:39)
--- NOTE | 2023-04-27 08:40 | PCM.OPRPT ---
Report of Operation Date of Procedure: 04/27/23 Pre-Operative Diagnosis: Right knee primary osteoarthritis Post-Operative Diagnosis: Right knee primary osteoarthritis Surgery/Procedure Performed:: Right minimally invasive robotic total knee replacement Description of Surgical Findings:: Stable knee with good patella tracking Surgeon: Paulo Roca assembler radio and electrical: Kvng Correia assembler radio and electrical: Emperatriz Hassan Type of Anesthesia: Spinal Anesthesiologist: Reji Morales Special Medications: 2 g Ancef, 1 g TXA at incision, 1 g TXA closure, 10 mg Decadron, joint cocktail (5 mg Duramorph, 30 mL of 0.5% Ropivicaine, 1000 units of epinephrine, 30 mg of Toradol) Specimen's removed: Bony cuts Estimated Blood Loss (mL): 75 Fluids Replaced: 1200 ml Description of Procedure: Implants used: 1. [place]ud[place]y size 7 triathlon cruciate retaining distal femoral press-fit component 2. Kyree size 6 press-fit tritanium tibial baseplate 3. Kyree X3 12 mm polyethylene 4. Kyree X3 38mm asymmetric patella Brief history operative indications: 82-year-old M with history of right knee osteoarthritis with radiographic findings with loss of joint space, osteophyte formation and subchondral sclerosis. Failed conservative measures as mentioned in the H&P. Discussion of total knee arthroplasty as well as risk and benefits were discussed the patient including but not limited to blood loss, DVTs, PEs, neurovascular damage, general risk of anesthesia including loss of life, and stiffness or instability were discussed with patient. Patient demonstrated understanding and was able to sign informed consent. Procedure: On the date of procedure patient's right lower extremity was marked in the preoperative area. The patient was then taken back to the operating room where the patient was placed on the table in the supine position. All bony prominences were identified a well-padded. Anesthesia assumed control of the C-spine and airway and remained controlled throughout the remainder of the procedure. A tourniquet was placed on the right upper thigh and the leg was prepped in a sterile fashion. The surgeon then scrubbed at this time .Upon reentering the room right lower extremity was draped in a standard orthopedic fashion. A timeout was then called and everyone agreed upon the side, the site, the procedure to be performed, patient's identity and antibiotics given. Esmarch bandage was used to exsanguinate the extremity and the tourniquet was placed up to 250 mmHg with the knee in flexion. A midline skin incision was made and sharp dissection was taken down through skin subcutaneous tissue and fat. The standard medial parapatellar incision was made and the patella was subluxed laterally. An Appropriate deep MCL release was done and the fat pad was resected. Our attention was then directed to the patella. The patella was everted and a flat resection was made. The knee was then flexed up in 2 femoral pins were placed inside the incision and 2 tibial pins were placed outside the incision in the medial tibia bicortically. Once this was completed the 2 checkpoints in the femur and tibia were placed. Knee was then flexed up and the bony landmarks were registered. Once this was completed knee was taken through range of motion and manually stressed allowing us to a plan for an appropriate tibial cut. The robotic arm was brought into the field sterilely and checkpoint and saw were registered. Based on the patient's deformity the tibial cut was made neutral to the tibial axis. At this time the tensioner was then placed in the joint and ligament tension was checked at 90 degrees and full extension. Based on the patient's ligamentous tension appropriate adjustments were made to the operative plan and ligament releases were done. Once we were happy with our operative plan with balanced flexion and extension gaps our attention was directed to the femur. The robot was brought into the field sterilely and registered. Posterior condylar cuts, anterior chamfer cuts and anterior cuts were appropriately made for a size 7 femur. When these were completed the saws were switched out in the distal femoral and posterior chamfer cuts were made. Protecting the soft tissue throughout this time. A size 6 tibial base plate was selected. the knee was flexed to 90 degrees and the soft tissues and posterior osteophytes were removed from the joint. 40 cc of the periarticular injection was injected into the posterior medial corner of the joint. The appropriate trials were then placed on the femur and tibia. A trial polyethylene was trialed to ensure proper balancing and stability of the knee. The appropriate tibial internal rotation was then marked with a bovie. Our attention was then directed to the patella. The lug holes were drilled and the patella trial was placed. Patellar tracking was checked and deemed appropriate. Once we were happy lug holes were drilled for the femur and trial components were removed. the tibia was subluxed and pinned into place and the keel was punched and drilled appropriately. Final components were verified and opened, and cement was mixed in a vacuum. Cudahy Simplex cement was used. The wound was copiously irrigated with normal saline. When the cement was ready the components were impacted into place starting with the tibia, femur and finally cementing the patella. The trial poly component was placed and the knee was placed in full extension. Once the implants were impacted into place, the tracking, alignment and balance were verified and a size 12MM CS polyethylene component was placed. Once the final components were placed a 3-minute dilute Betadine lavage was performed followed by an Irrisept lavage was performed and the wound was copiously irrigated with normal saline solution and the periarticular injection was given. The wound was closed in a layer corea fashion using #1 vicryl interrupted sutures for the arthrotomy, 2-0 interrupted Vicryl suture for the subcuticular layer and nani for final skin closure. A sterile compressive dressing was then placed. The patient was then awakened from anesthesia, transferred to the rtrenton and transferred to the PACU for recovery. Post op plan DVT ppx: ASA 81mg BID, thigh high compression stockings Follow up: in office in 2 weeks for wound check PT: to start POD #0 at hospital, outpatient PT should be arranged. My physician assistant store manager sales was a vital part of this case. He was important in appropriate retraction during the case, and protection of soft tissues during bony cuts. His intimate knowledge of the case and my steps aided in safe and expedient completion of the procedure as well as appropriate position of the leg during the case. He was also vital in assisting with closure under my direct supervision. Due to the complexity of this case robotic arm was used to assist in the surgery to improve accuracy and clinical outcomes. Complications No intraoperative complications Admit VTE Documentation VTE Present on Admission: No VTE Mechan Device Prophylaxis: SCD's and Thigh High KAE Hose VTE Pharm Prophylaxis ordered?: Yes
[2023-04-27] MEDS: JPS (Morphine 10mg/ml) OPERA.SITE (08:44)
[2023-04-27 09:45] LABS: Bedside Glucose 112 mg/dL (74-106)
[2023-04-27] MEDS: Lactated Ringers 1,000 ML 125 ML IV (10:07)
--- NOTE | 2023-04-27 10:10 | RAD_ITS ---
STUDY: X-RAY - RIGHT KNEE REASON FOR EXAM: Male, 82 years old. Post op -- AP and Lateral xray of operative knee in PACU. TECHNIQUE: 2 views of the right knee. COMPARISON: None. FINDINGS: There are new postoperative changes related to right total knee arthroplasty with patellar resurfacing. There is a vertical staple line along the anterior aspect of the knee. There is gas in the patellofemoral joint recess and anterior soft tissues, compatible with recent surgery. The orthopedic hardware components are intact. There is no periprosthetic fracture. Normal proximal tibiofibular articulation. There is no demonstrated fracture. RAD/Knee 1 or 2 Views IMPRESSION: New postoperative changes related to right total knee arthroplasty. Electronically Signed: Rafael Sanchez MD at 11:00 EST ,
[2023-04-27] MEDS: Famotidine 20 MG Tablet PO (11:23)
[2023-04-27] MEDS: Pantoprazole Sodium 20 MG Tablet PO (11:23)
[2023-04-27] MEDS: Senna/Docusate Sodium 1 Tablet 2 TABLET PO ×2 (11:23→22:08)
[2023-04-27] MEDS: Cefazolin 1 GM/50 ML BAG IV (15:39)
[2023-04-27] MEDS: oxyCODONE 5 MG Tablet PO ×2 (15:42→22:09)
--- OUTSIDE RECORDS SUMMARY | 2023-04-27 18:13 | XMS RPT_ITS | CCD ---
Author Name Unknown Address [address] [place] [address] Organization [facility] Results Test Name Value Interpretation Reference Range Facil ity Clinical Note 04-10-2020 Note Date & Type Note Facility 04-10-2020 Note Patient Outreach ([facility]) LORI SAM ([id number]) 1940 M Date Time Provider Department 04/10/20 [...] Comments: Other allergic reaction nasal congestion, sneeze [id number]-BUE-ACF REDUCTASE INHIBIT*10/17/2015 14 - Other: See Comments Comments: Adverse Reaction also crestor at any does higher than 5 mg weekly causes a reaction Date Reviewed: 02/04/2019 Reviewed by: Jim Patel - Fully Assessed Order(s):SARS-COVID VACCINE 1ST DOSE APPT [[id number]] Order #: [id number] FUTURE Prescriptions as of 04/10/2020 Sig: SULFAMETHOXAZOLE [...] Encounter Status:Closed by LITO, PRODUSER on 04/14/20 [facility] Summary Purpose Family History No Family History Records FoundNo Family History Records Found Advance Directives No Advanced Directives Records FoundNo Advanced Directives Records Found Additional Source Comments (unrecognized sect ion and content) No Status Records FoundNo Status Records Found INFORMATION SOURCE (unrecogn ized section and content) DATE CREATED AUTHOR AUTHOR'S ORGANIZ ATION 03/31/2021 [facility] FOR RECORDS PERTAINING TO PATIENTS WHO ARE [...] BE BASED ON THE PRIMARY CLINICAL RECORDS. [facility]. provides no warranty or guarantee of the accuracy or completeness of information in this document.
--- NOTE | 2023-04-27 18:41 | PN.HOSP_ITS ---
Reason for Visit Reason for Visit: Diagnoses Encounter for preprocedural cardiovascular examination (04/27/23) Encounter for other preprocedural examination (04/27/23) Subjective Subjective Patient was seen and examined today at the request of orthopedic surgery, he underwent a right minimally invasive robotic total knee replacement. Past medic al history includes hypertension, peripheral vascular disease, GERD, and BPH. At the time my examination, patient has no complaints of any shortness of breath or chest discomfort, he seems comfortable. I talked with him about his living situation at home, he does not have any stairs to climb to get to his bedroom at home. I told him it may be a possibility he may have to go to an extended care facility for short-term rehab services if he does not progress with physical therapy here. Objective Data Objective Data Vital Signs: Vital Signs Temp Pulse Resp BP Pulse Ox O2 Del Method O2 Flow Rate 98.2 F 74 18 125/69 H 96 Room Air 2 04/27/23 18:33 04/27/23 18:33 04/27/23 18:33 04/27/23 18:33 04/27/23 18:33 04/27/23 18:33 04/27/23 10:49 Oxygen Flow Rate (L/min) 2 Oxygen Delivery Method Room Air Weight: 101 kg Body Mass Index (BMI) 32.8 Intake & Output: Intake and Output for Last 24 Hours 04/25/23 04/26/23 04/27/23 23:59 23:59 23:59 Intake Total 4298.67 / 4298.67 Balance 4298.67 / 4298.67 Lab / Micro Data 04/05/23 08:52 04/05/23 08:52 Labs: Laboratory Results - last 24 hr 04/27/23 06:02: POC Glucose 112 H Micro: Microbiology 04/05/23 08:52 Swab (Method) Nasal Screen MRSA/MSSA - Final Radiography Diagnostic Testing: Radiology Impression Knee X-Ray 04/27/23 10:10 IMPRESSION: New postoperative changes related to right total knee arthroplasty. Electronically Signed: Rafael Sanchez MD at 11:00 EST , Physical Exam Const alert, oriented x3, no apparent distress, average body habitus and healthy appearing General Appearance: cooperative, well kempt and well developed Orientation / Consciousness: awake, oriented to person, oriented to place and oriented to time HEENT normocephalic, head/scalp atraumatic and moist oral mucous membranes Eyes PERRL, EOMs intact bilaterally and conjunctivae normal Neck supple, no JVD, thyroid normal and no carotid bruits General: trachea midline Resp normal respiratory effort, no retractions, no use of accessory muscles and clear to auscultation bilaterally Auscultation: Negative for rales, rhonchi or wheezes Cardio regular rate, regular rhythm, S1 normal heart sound, S2 normal heart sound, no murmurs, no rub and no gallops GI normal to inspection, nondistended, normoactive bowel sounds, soft to palpation, non-tender and non-distended Extremity no clubbing, cyanosis or edema Skin no rashes or lesions noted General Skin Exam: no breakdown Neuro oriented x3, CN's II-XII intact bilaterally, moves all extremities, no focal motor deficits and no sensory deficits noted Sensorium / Orientation: awake and alert Speech: speech normal Psych affect normal Assessment & Plan Assessment/Plan (1) Hypertension: PLAN: Plan 1. Essential hypertension-patient will remain on amlodipine and losartan, blood pressure will be monitored and medicines will be adjusted as needed #2 GERD-patient remains on a PPI at this time #3 BPH-patient is on Flomax #4 osteoarthritis of the right knee-status post right knee replacement postop day 0-patient will be seen by PT and OT, orthopedic surgery is managing his orthopedic issues. #5 history of COPD-stable at this time, patient is not on any oxygen and does not use an inhaler at home #6 peripheral vascular disease-patient is on Pletal Total clinical time spent by myself addressing the patient's medical issues, reviewing all of his data, and collaborating with patient's care team: 30 min utes Charges/Coding Visit Charges Office Visits / Consults: [id number] OV L4 Est 30min
[2023-04-27] MEDS: Tamsulosin HCl 0.4 MG Capsule 0.400000000000000022 MG PO (22:08)
[2023-04-27] MEDS: Aspirin 81 MG TAB.CHEW PO (22:08)
[2023-04-28 00:06] VITALS: BP 136/76; PULSE 65; RESP 18; TEMP 36.8; O2SAT 98
[2023-04-28] MEDS: 0.9% Saline Lock 10 ML Syringe IV (00:07)
[2023-04-28] MEDS: Cefazolin 1 GM/50 ML BAG IV (00:07)
[2023-04-28 05:33] VITALS: BP 149/83; PULSE 65; RESP 18; TEMP 36.9; O2SAT 97
[2023-04-28] MEDS: oxyCODONE 5 MG Tablet PO (06:47)
[2023-04-28] MEDS: Acetaminophen 500 MG Tablet 1000 MG PO (06:47)
[2023-04-28 08:25] VITALS: BP 121/62; PULSE 61; RESP 16; TEMP 36.6; O2SAT 98
[2023-04-28 08:29] LABS: Hematocrit 36.5 % (40-54); Hemoglobin 12.1 g/dL (13.0-16.5); Mean Corp Hgb Conc 33.2 g/dL (32-36); Mean Corpuscular Hgb 32.6 pg (27.0-32.0); Mean Corpuscular Volume 98.4 fL (80-94); Mean Platelet Vol. 10.3 fl (6.2-12.0); Platelet Count 163 K/mm3 (150-450); RBC Distribution Width CV 12.2 % (11.6-14.6); RBC Distribution Width SD 44.2 fl (35.1-43.9); Red Blood Count 3.71 M/mm3 (4.6-6.2); White Blood Count 11.4 K/mm3 (4.4-11.0)
[2023-04-28] MEDS: Ensure Surgery 237 ML LIQUID PO (08:29)
[2023-04-28] MEDS: Famotidine 20 MG Tablet PO (08:29)
[2023-04-28] MEDS: Senna/Docusate Sodium 1 Tablet 2 TABLET PO (08:30)
[2023-04-28] MEDS: Aspirin 81 MG TAB.CHEW PO (08:30)
[2023-04-28] MEDS: Losartan Potassium 100 MG Tablet PO (08:30)
[2023-04-28] MEDS: amLODIPine 5 MG Tablet PO (08:30)
[2023-04-28] MEDS: Cilostazol 50 MG Tablet 100 MG PO (08:30)
[2023-04-28] MEDS: Pantoprazole Sodium 20 MG Tablet PO (08:30)
[2023-04-28 09:07] LABS: Anion Gap 3 (5-15); BUN 15 mg/dL (7-18); BUN/Creat Ratio 21.3 RATIO (10-20); Calcium,Total 8.8 mg/dL (8.5-10.1); Chloride 110 mmol/L (98-107); EST Glomerular Filtration Rate 114 mL/min (>60); Est Glom Filt Rate - Afr Amer 138 mL/min (>60); Estimated Creatinine Clearance 86.27 ml/min; Glucose 122 mg/dL (74-106); Potassium 3.9 mmol/L (3.5-5.1); Sodium Level 139 mmol/L (136-145)
--- NOTE | 2023-04-28 09:45 | CASEMGMT ---
Met with patient to complete COOMBS form. COOMBS form explained to patient who voiced understanding and signed form. Original form placed in pt?s chart and copy provided to?patient. Chela Rodriguez, Discharge Planning Asst
--- NOTE | 2023-04-28 10:32 | PN.ORTHO_ITS ---
Subjective Subjective The patient was sitting in bedside chair upon examination. Patient denies any chest pain, shortness of breath, dizziness, lightheadedness, nausea or vomiting, or calf pain. Pain is controlled on medications. No adverse overnight events. Patient has worked with physical therapy and did very well. He has no comp laints this morning. Patient did have some mild drainage over the distal Mepilex dressing. Nursing will replace this dressing. Patient wishes to go home today. Objective Data Objective Data Vital Signs: Vital Signs Temp Pulse Resp BP Pulse Ox O2 Del Method O2 Flow Rate 97.8 F 61 16 121/62 H 98 Room Air 2 04/28/23 08:25 04/28/23 08:25 04/28/23 08:25 04/28/23 08:25 04/28/23 08:25 04/28/23 08:25 04/27/23 10:49 Oxygen Flow Rate (L/min) 2 Oxygen Delivery Method Room Air Weight: 101 kg Body Mass Index (BMI) 32.8 Intake & Output: Intake and Output for Last 24 Hours 04/26/23 04/27/23 04/28/23 23:59 23:59 23:59 Intake Total 4298.67 / 4298.67 950 / 950 Output Total 650 / 650 Balance 4298.67 / 4298.67 300 / 300 Lab / Micro Data 04/28/23 08:14 04/28/23 08:14 Labs: Laboratory Results - last 24 hr 04/28/23 08:14: WBC 11.4 H, RBC 3.71 L, Hgb 12.1 L, Hct 36.5 L, MCV 98.4 H, MCH 32.6 H, MCHC 33.2, RDW Std Deviation 44.2 H, RDW Coeff of Lesley 12.2, Plt Count 163, MPV 10.3, Sodium 139, Potassium 3.9, Chloride 110 H, Carbon Dioxide 26.0, Anion Gap 3 L, BUN 15, Creatinine 0.70, Estim Creat Clear Calc 86.27, Est GFR (MDRD) Af Amer 138, Est GFR (MDRD) Non-Af 114, BUN/Creatinine Ratio 21.3 H, Glucose 122 H, Calcium 8.8 Micro: Microbiology 04/05/23 08:52 Swab (Method) Nasal Screen MRSA/MSSA - Final Radiography Diagnostic Testing: Radiology Impression Knee X-Ray 04/27/23 10:10 IMPRESSION: New postoperative changes related to right total knee arthroplasty. Electronically Signed: Rafael Sanchez MD at 11:00 EST , Physical Exam Narrative Vital signs stable and afebrile. SCDs and KAE hose are in place bilaterally Patient is able to plantarflex and dorsiflex actively. Sensation is intact to light touch to saphenous, sural, superficial and deep p eroneal, and tibial distribution. Pin site dressings intact with mild Drainage. Main Mepilex dressing is overall intact with mild drainage contacting to borders. This will be removed and new Mepilex dressing placed. Discussed with nursing Negative Homans bilaterally, negative signs and symptoms of DVT. Const alert, oriented x3 and no apparent distress Assessment & Plan Assessment/Plan (1) Status post total right knee replacement: PLAN: 1. S/P right total knee arthroplasty POD #1 2. Continue Pain Medications: Tylenol, naproxen, and oxycodone. Patient takes naproxen at home chronically due to arthritis. This is followed by outside provider. I did discuss with him making sure that they are watching his kidney function on chronic NSAIDs. He states there taken appropriate lab work. He will resume his naproxen on discharge 3. DVT Prophylaxis: Take 81 mg aspirin twice daily for 4 weeks postoperatively for DVT prophylaxis. Patient denies past history of DVT or pulmonary embolism. While on the aspirin for DVT prophylaxis I do recommend he stop the Pletal due to the increased risk of bleeding. He will resume the Pletal once finished with the aspirin. Patient voiced understanding and agreement. 4. PT/OT: Weightbearing as tolerated with walker. Patient has done very well with physical therapy in the hospital. 5. H & H: 12.1/36.5, asymptomatic. Labs reviewed and stable. 6. Reactive leukocytosis: 11.4, Afebrile. Patient did receive Decadron intraoperatively. No clinical signs of infection. 7. Wound drainage: Patient had mild drainage over the distal Mepilex dressing. We are placing a new dressing prior to discharge. He was instructed to contact our office with any concerns with discharge. 8. Continue postoperative medical management per medicine 9. Encouraged Incentive Spirometry 10. Disposition: Plan will be for discharge home this afternoon as long as patient is medically stable, tolerates therapy, and pain is adequately controlled. Patient would like his prescriptions E scribed to [facility]. He has outpatient physical therapy established. He will follow-up per postoperative instructions. Patient will contact her office with any concerns or questions. We did discuss his Pletal in which he will hold off until finished with the aspirin due to the increased risk of bleeding. We also will change his Mepilex dressing prior to discharge. If there are any complications he will reach out to our office. I have reviewed the [place] Automated Rx Reporting System (OARRS) report for this patient for refill pattern and other prescriber involvement as part of the appropriate surveillance for the provision of acute and chronic controlled medications. The report was requested and reviewed on the date of this entry and was considered in the prescribing process. This dictation was created using voice recognition software. Phonetic and/or grammatical errors may exist.
--- NOTE | 2023-04-28 10:40 | PCM.DC ---
Discharge Instructions Diet Discharge Diet: No restrictions Activity Discharge Activity: May Not Drive (while taking na no driving for 6 weeks postoperatively. Must also be off all narcotics and able to walk 100 feet without the use of cane or walker.) May shower in (days): 1 (Please turn dressing away from water. Okay to get wet as long as dressing is intact to skin.) Ice area for (Minutes): 20 (Every 1-2 hours while awake[address] Please place barrier between the skin and ice pack.) Weight Bearing Status: Weight bearing as tolerated Keep extremity elevated above heart level: Operative Extremity Dressing / Incision Call your doctor if your incision/area has: Continuous Slow Oozing, Sudden Increased Bleeding, Increased Pain/ Swelling, Increased Redness and Foul Smelling Discharge Call your doctor if you observe: Fever of 101 or Higher, Coldness, Increased Pain, Numbness or Tingling, Change in Color, Shortness of breath, Chest pain, Calf discomfort and Uncontrolled pain Remove Dressing in: 4 days (Okay to remove dressing on May 02, 2023) Additional Dressing/Incision Instructions:: Follow [facility] Post-op Instructions. Once postoperative dressing has been removed only use gentle soap and water over the incision. Do not use any ointments, Neosporin, salves, alcohol pads over the incision for 6 weeks postoperatively. Do not submerge underwater for 6 weeks postoperatively. Continue with KAE hose/elastic stockings for 2 weeks postoperatively. May remove at nighttime but needs to be placed back on the leg during the day. Do NOT use alcohol with narcotic pain medication. Do NOT make important decisions while taking narcotic medication. If you have problems with taking your medication (rash, itching, nausea, etc.) call the office at once. Follow Up Care Test Results: Test results from this visit will be discussed in further detail at your follow-up appointment, if applicable. Discharge Plan Admission Admit Date/Time: 04/27/23 06:56 Attending Provider: Paulo Roca Primary Care Provider: Joshua Up Consulting Providers: Lele Davis; Kaye Sanchez Discharge Orders/Prescriptions Prescriptions: New acetaminophen 500 mg Tablet 1,000 mg PO TID 14 Days Qty: 84 0RF Rx Instructions: Do not take more than 3000 mg Tylenol in a 24-hour period. aspirin 81 mg Tablet,Chewable 81 mg PO BID 30 Days Qty: 60 0RF Rx Instructions: Take 81 mg aspirin twice daily for 4 weeks postoperatively for DVT prophylaxis. oxycodone 5 mg Tablet 5 - 10 mg PO Q4H PRN PRN (Reason: Pain Score 4-10) 7 Days Qty: 42 0RF sennosides-docusate sodium [Stool Softener-Stimulant Laxat] 8.6-50 mg Tablet 2 tab PO BID 3 Days Qty: 12 0RF Rx Instructions: Take until first bowel movement, then as needed Continued amlodipine 5 MG tablet 5 mg PO DAILY tamsulosin 0.4 MG capsule 0.4 mg PO QHS losartan 100 MG tablet 100 mg PO DAILY omeprazole magnesium 20 MG tablet,delayed release (DR/EC) 20 mg PO DAILY naproxen 500 mg tablet 500 mg PO Q12H Held cilostazol 100 MG tablet 100 mg PO DAILY Hold Instructions: Resume on 05/26/23. Hold medication until you are finished with the aspirin 81 mg twice daily for DVT prophylaxis Other Ambulatory Orders: 12 Lead EKG (Routine) Timeframe: [id number] Location: None Selected Ordered By: Dr. Paulo Roca Referrals / Follow Up: Physical,Therapy [Other] - 05/02/23 10:45 am Joshua Up MD [Primary Care Provider] - Kvng Correia PA-C [Med Staff - [facility] Practice Prof] - 05/12/23 1:45 pm Disposition Disposition (needs filled in before D/C Order can be placed): Home, Self Care
--- NOTE | 2023-04-28 11:37 | PHA.DC_ITS ---
Pharmacy [facility] Pharm[facility] Service has performed discharge medication reconciliation and counseling for this patient. 1. ACETAMINOPHEN 1000MG PO TID X 14 DAYS 2. ASPIRIN 81MG PO BIDCM X 4 WEEKS 3. OXYCODONE 5-10MG PO Q4H PRN PAIN 4. SENNA/DOCUSATE 2T PO BID UNTIL FIRST BM, THEN PRN CONSTIPATION The patient's discharge medication list was reviewed for discrepancies and discrepancies were resolved. The patient was counseled on the following discharge medications and changes in medications for homegoing were reviewed. The Reason for Use, instructions for use, and potential side effects were reviewed for all new medications. The patient's questions regarding all of their medications were answered. The patient was able to verbally demonstrate an understanding of their discharge medications. Patient counseled by pharmacy services representativeElian. Medications at Discharge Home Medications amlodipine 5 mg tablet 5 mg PO DAILY 01/29/19 cilostazol 100 mg tablet 100 mg PO DAILY circulation 01/29/19 losartan 100 mg tablet 100 mg PO DAILY 01/29/19 omeprazole magnesium 20 mg tablet,delayed release 20 mg PO DAILY 01/29/19 tamsulosin 0.4 mg capsule 0.4 mg PO QHS 01/29/19 naproxen 500 mg tablet 500 mg PO Q12H 03/30/23 acetaminophen 500 mg tablet 1,000 mg (2 x 500 mg) PO TID 14 days #84 tabs 04/28/23 aspirin 81 mg chewable tablet 81 mg PO BID 30 days #60 tabs 04/28/23 oxycodone 5 mg tablet 5 - 10 mg (1 - 2 x 5 mg) PO Q4H PRN PRN Pain Score 4-10 7 days #42 tabs 04/28/23 sennosides 8.6 mg-docusate sodium 50 mg tablet (Stool Softener-Stimulant Laxative) 2 tab PO BID 3 days #12 tabs 04/28/23
--- NOTE | 2023-04-28 11:50 | CASEMGMT ---
RN?CM?MANAGER PAID?CM?to room to meet with patient for initial transition planning/care coordination?assessment.?RN?CM?introduced self and role at [facility].? Pt voices understanding and consents to?assessment?at this time.? Pt sitting up in chair in room in no distress at this time.? Pt is A/O at this time and answers all questions appropriately.?? Care providers, pharmacy, and demographics verified/updated at this time. PCP: Dr Up Specialists: Dr Roca-ortho, Dr Marcus-urology Preferred Pharmacy: [facility], [place] Insurance: [employer] Prescription Benefit:?yes LNOK: , Valentina. Alyssa-other family Living Arrangements: Lives w/his in one-story home w/2 steps to enter. Pt states he is independent @ his baseline. Family can assist as needed. Pt denies needing therapy to work w/him on the steps, stating he has been navigating them for about 4 months. He also reports having a ramp entrance in the back, if needed. Transportation:?Pt, family DME: States has the following DME:?built-in shower seat, cane, walker ? Pt states no need for further DME at this time.? HHC/SNF: No hx of either. Pt plans to go to OP therapy in [place]. Appt scheduled for 05/01 @ 10:45 AM. will be taking him to appts. Pt wishes to return home and states has no concerns with going home at time of discharge.? Pt voices no further concerns/needs at this time.? PLAN:??Home w/OP therapy. Shreya CHIANGN?RN?CM
[2023-04-28 13:15] VITALS: BP 120/65; PULSE 76; RESP 18; TEMP 36.6; O2SAT 98
== END 2023-04-28 13:44 | disposition home or self-care (01) ==
LOC: SDC 09:52 → MS3 09:52
PROVIDERS: Anesthesiology; Admitting Provider Specialist; PCP Family Medicine; Referring Provider Specialist; Visit Provider Specialist
PROC: 0SRC0JZ Replacement of Right Knee Joint with Synthetic Substitute, Open Approach (ICD-10-PCS; CPT 27447; principal; 2023-04-27 07:00)
DX: M17.0 Bilateral primary osteoarthritis of knee (principal); J44.9 Chronic obstructive pulmonary disease, unspecified; I73.9 Peripheral vascular disease, unspecified; E66.9 Obesity, unspecified; Z68.35 Body mass index [BMI] 35.0-35.9, adult; E78.00 Pure hypercholesterolemia, unspecified; N40.0 Benign prostatic hyperplasia without lower urinary tract symptoms; F17.290 Nicotine dependence, other tobacco product, uncomplicated; M21.162 Varus deformity, not elsewhere classified, left knee; M21.161 Varus deformity, not elsewhere classified, right knee; I10 Essential (primary) hypertension; K21.9 Gastro-esophageal reflux disease without esophagitis; Z79.899 Other long term (current) drug therapy
CPT/HCPCS: 27447; S2900; 01402; 64447; 36415; 73560; 80048; 82040; 82962; 83735; 85025; 85027; 87081; 88305; 88311; 94668; 96361; 96365; 96366; 97116; 97162; 97166; 97530; 97535; 99221; 99252; C1776; J7120; A4216; G0378; G0463; J2405; J3475

== ENCOUNTER 2023-04-28 20:58 | Emergency (ER) | payer MEDICARE, SELFPAY ==
[2023-04-28 21:00] VITALS: BP 138/71; PULSE 79; RESP 18; TEMP 36.8; O2SAT 97; BMI 36.6
--- NOTE | 2023-04-28 21:45 | EDS_ITS ---
HPI History of Present Illness Chief Complaint: Weakness Narrative Narrative: 82-year-old male presenting with right knee pain. Patient had total right knee today by Dr. Roca. He states he will be up today. Took 2 oxycodone and states he felt like I was paralyzed . He sat on the chair. He is still in pain. He states he had not had a chance to really ice his knee. Denies any new trauma. He states he only really walked around the hospital floor before leaving and did some dishes when he got home. He has not really elevated his leg either. No significant bleeding from the wound. No fevers or chills. Patient feels well at this point but still having knee pain. [facility] Medical History Ambulates with cane Arthritis Cancer COPD (chronic obstructive pulmonary disease) GERD (gastroesophageal reflux disease) High cholesterol History of echocardiogram History of stress test Hypertension Loss of hearing Prostate disease Restless legs Shortness of breath on exertion Smokeless tobacco use Smoker Walker as ambulation aid Wears glasses Wears hearing aid Home Medications amlodipine 5 mg tablet 5 mg PO DAILY 01/29/19 [History Last Taken 04/27/23 04:00] cilostazol 100 mg tablet 100 mg PO DAILY circulation 01/29/19 [History Last Taken 04/20/23] losartan 100 mg tablet 100 mg PO DAILY 01/29/19 [History Last Taken 04/27/23 04:00] omeprazole magnesium 20 mg tablet,delayed release 20 mg PO DAILY 01/29/19 [History Last Taken 04/26/23 09:00] tamsulosin 0.4 mg capsule 0.4 mg PO QHS 01/29/19 [History Last Taken 04/20/23] naproxen 500 mg tablet 500 mg PO Q12H 03/30/23 [History Last Taken 04/20/23] acetaminophen 500 mg tablet 1,000 mg (2 x 500 mg) PO TID 14 days #84 tabs 04/28/23 [Rx Last Taken Unknown] aspirin 81 mg chewable tablet 81 mg PO BID 30 days #60 tabs 04/28/23 [Rx Last Taken Unknown] oxycodone 5 mg tablet 5 - 10 mg (1 - 2 x 5 mg) PO Q4H PRN PRN Pain Score 4-10 7 days #42 tabs 04/28/23 [Rx Last Taken Unknown] sennosides 8.6 mg-docusate sodium 50 mg tablet (Stool Softener-Stimulant Laxative) 2 tab PO BID 3 days #12 tabs 04/28/23 [Rx Last Taken Unknown] Allergy/AdvReac Type Severity Reaction Status Date / Time No Known Allergies Allergy Verified 04/28/23 21:00 Surgical History History of colon resection (~2019) History of hernia repair History of surgical removal of skin lesion (~2019) Total knee replacement status Social History Smoking Status: Current every day smoker 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 ROS ROS ED Constitutional Constitutional ED: Denies chills, fever(s) or sweats Eyes Eyes: Denies blurry vision or change in vision ENT ENT ED: Denies ear pain or sore throat Cardiovascular Cardiovascular: Denies chest pain, palpitations or racing heartbeat Respiratory/Chest Respiratory/Chest: Denies cough, dyspnea or sputum Gastrointestinal Gastrointestinal: Denies abdominal pain, constipation, diarrhea, nausea or vomiting Genitourinary Genitourinary ED: Denies dysuria, hematuria or urinary frequency Musculoskeletal Musculoskeletal: Reports other Details: Right knee pain ; Denies arthralgias, myalgias or neck pain Integumentary Denies abscess, Abrasions or rash Neurologic Neurologic: Denies headache(s), paresthesias or weakness Psychiatric Psychiatric: Denies anxiety, depression, suicidal ideation or suicidal thoughts Endocrine Endocrinology: Denies polydipsia or polyuria EXAM Physical Exam Const Vital Signs: 04/28/23 21:00 04/28/23 21:06 Temperature 98.3 F Temperature Source Oral Pulse Rate 79 Respiratory Rate 18 Respiratory Effort Normal Non-Labored Respiratory Pattern Normal Blood Pressure 138/71 H Blood Pressure Mean 93 Pulse Ox 97 Oxygen Delivery Method Room Air Positive well nourished General Appearance ED: NAD HEENT Reports moist mucous membranes normocephalic Chest Wall inspection of chest normal Resp normal respiratory effort Cardio regular rate and regular rhythm Extremity Extremity Narrative: Edema noted over the right patella and there is some surrounding erythema which has not increased in warmth. No lymphangitic streaking. No fluctuance. Dressing is intact. There are some slight blood at the lower edge of dressing but no active bleeding. Neuro oriented x3 Sensorium / Orientation: alert Motor Exam: strength 5/5 throughout Psych mental status grossly normal MDM MDM MDM Narrative Medical decision making narrative: Patient presenting with right knee pain. He states that the narcotic pain medication that gave him made him paralyzed . He states he does not want narcotic pain medicine. We did discuss that he would need to ice his leg as well as keep it elevated when he is not walking. I offered him something for pain here but he states he does not want narcotics so we did give him Toradol. Obtained a CBC to assess white blood cell count, hemoglobin, platelets. BMP to assess renal function, electrolytes. Will reevaluate. Patient feeling better after icing his leg and we did obtain 2 ice packs. He states this helped a lot as well as a Toradol. CBC shows white blood cell count 12.4 which is not much from his baseline of 11.4 earlier today. Hemoglobin 11.8 with only slight drop this is likely due being postoperative/blood loss. Renal function and electrolytes are normal. Since patient is feeling better we will discharge him home. He is counseled to ice, rest, elevate. He has a walker at home. He should use this as needed. Wound care instructions and return precautions discussed. Impression: 1. Postop wound check 2. Postop pain Lab Data Labs: Laboratory Results - last 24 hr 04/28/23 21:45 WBC 12.4 H RBC 3.63 L Hgb 11.8 L Hct 35.1 L MCV 96.7 H MCH 32.5 H MCHC 33.6 RDW Std Deviation 44.0 H RDW Coeff of Lesley 12.3 Plt Count 164 MPV 10.3 Immature Gran % (Auto) 0.500 Neut % (Auto) 79.3 H Lymph % (Auto) 7.1 L [place] % (Auto) 12.8 H Eos % (Auto) 0.0 Baso % (Auto) 0.3 Absolute Neuts (auto) 9.8 H Absolute Lymphs (auto) 0.88 Nucleated RBC % 0 Differential Comment SEE COMMENT Diff Path Review May foll Platelet Estimate ADEQUATE Anisocytosis 1+ Macrocytosis 1+ Ovalocytes RARE Sodium 139 Potassium 3.9 Chloride 110 H Carbon Dioxide 25.0 Anion Gap 4 L BUN 20 H Creatinine 0.87 Estim Creat Clear Calc 83.70 Est GFR (MDRD) Af Amer 108 Est GFR (MDRD) Non-Af 89 BUN/Creatinine Ratio 22.9 H Glucose 124 H Calcium 8.6 Discharge Plan Triage Chief Complaint: Weakness ED Provider: Arvind Almeida Dx/Rx/DC Orders Instructions: ED Post Op Wound Check, Pain Prescriptions: No Action cilostazol 100 MG tablet 100 mg PO DAILY Hold Instructions: Resume on 05/26/23. Hold medication until you are finished with the aspirin 81 mg twice daily for DVT prophylaxis amlodipine 5 MG tablet 5 mg PO DAILY tamsulosin 0.4 MG capsule 0.4 mg PO QHS losartan 100 MG tablet 100 mg PO DAILY omeprazole magnesium 20 MG tablet,delayed release (DR/EC) 20 mg PO DAILY naproxen 500 mg tablet 500 mg PO Q12H acetaminophen 500 mg Tablet 1,000 mg PO TID 14 Days Qty: 84 0RF Rx Instructions: Do not take more than 3000 mg Tylenol in a 24-hour period. aspirin 81 mg Tablet,Chewable 81 mg PO BID 30 Days Qty: 60 0RF Rx Instructions: Take 81 mg aspirin twice daily for 4 weeks postoperatively for DVT prophylaxis. oxycodone 5 mg Tablet 5 - 10 mg PO Q4H PRN PRN (Reason: Pain Score 4-10) 7 Days Qty: 42 0RF sennosides-docusate sodium [Stool Softener-Stimulant Laxat] 8.6-50 mg Tablet 2 tab PO BID 3 Days Qty: 12 0RF Rx Instructions: Take until first bowel movement, then as needed Primary Care Provider: Joshua Up Referrals: Joshua Up MD [Primary Care Provider] - Paulo Roca MD [Med Staff - Active Staff] - As soon as possible Disposition Disposition: Home, Self Care
[2023-04-28 21:53] LABS: Absolute Lymphocyte Count 0.88 X10^3/uL (0.83-4.51); Absolute Neutrophil Count 9.8 X10^3/uL (2.0-7.7); Basophil# 0.04 X10^3/uL; Basophil% 0.3 % (0-1); Hematocrit 35.1 % (40-54); Hemoglobin 11.8 g/dL (13.0-16.5); Lymphocyte # 0.88 X10^3/ul (0.83-4.51); Lymphocyte % 7.1 % (19-41); Mean Corp Hgb Conc 33.6 g/dL (32-36); Mean Corpuscular Hgb 32.5 pg (27.0-32.0); Mean Corpuscular Volume 96.7 fL (80-94); Mean Platelet Vol. 10.3 fl (6.2-12.0); Monocyte# 1.58 X10^3/uL; Monocyte% 12.8 % (0-10); NRBC Flagged by Analyzer 0 % (0-5); Neutrophil # 9.82 X10^3/uL (2.7-7.7); Neutrophil % 79.3 % (47-70); POSITIVE DIFFERENTIAL YES; Platelet Count 164 K/mm3 (150-450); RBC Distribution Width CV 12.3 % (11.6-14.6); Red Blood Count 3.63 M/mm3 (4.6-6.2); White Blood Count 12.4 K/mm3 (4.4-11.0)
[2023-04-28 21:57] LABS: Differential Indicated SCAN CRITERIA MET
[2023-04-28] MEDS: Ketorolac 15 MG/ML Vial IV (21:58)
[2023-04-28 22:10] LABS: Anisocytosis 1+; Macrocytosis 1+; Ovalocyte RARE; Platelet Estimate ADEQUATE (ADEQ)
[2023-04-28 22:14] LABS: Anion Gap 4 (5-15); BUN 20 mg/dL (7-18); BUN/Creat Ratio 22.9 RATIO (10-20); Calcium,Total 8.6 mg/dL (8.5-10.1); Chloride 110 mmol/L (98-107); Creatinine, Serum 0.87 mg/dL (0.70-1.30); EST Glomerular Filtration Rate 89 mL/min (>60); Est Glom Filt Rate - Afr Amer 108 mL/min (>60); Glucose 124 mg/dL (74-106); Potassium 3.9 mmol/L (3.5-5.1); Sodium Level 139 mmol/L (136-145)
[2023-04-29 14:34] LABS: Pathologist Review Reviewed
== END 2023-04-28 23:10 | disposition home or self-care (01) ==
PROVIDERS: Emergency Provider Student in an Organized Health Care Education/Training Program; PCP Family Medicine; Visit Provider Student in an Organized Health Care Education/Training Program
DX: G89.18 Other acute postprocedural pain (principal); J44.9 Chronic obstructive pulmonary disease, unspecified; R53.1 Weakness; M25.561 Pain in right knee; F17.220 Nicotine dependence, chewing tobacco, uncomplicated; F17.290 Nicotine dependence, other tobacco product, uncomplicated; Z79.82 Long term (current) use of aspirin; Z79.899 Other long term (current) drug therapy; Z96.651 Presence of right artificial knee joint
CPT/HCPCS: 80048; 85025; 96374; 99283; A4216

== ENCOUNTER → 2023-06-29 | Outpatient (CLI) | payer MEDICARE, SELFPAY ==
[2023-06-29 11:05] LABS: Anion Gap 6 (5-15); BUN 20 mg/dL (7-18); BUN/Creat Ratio 28.3 RATIO (10-20); Calcium,Total 9.1 mg/dL (8.5-10.1); Chloride 108 mmol/L (98-107); Cholesterol 150 mg/dL (200); Creatinine, Serum 0.71 mg/dL (0.70-1.30); EST Glomerular Filtration Rate 114 mL/min (>60); Est Glom Filt Rate - Afr Amer 138 mL/min (>60); Glucose 107 mg/dL (74-106); High Density Lipoprotein 39 mg/dL; PSA,Total- Diagnostic 2.78 ng/mL (0.0-4.0); Sodium Level 139 mmol/L (136-145); Triglycerides 78 mg/dL; Very Low Density Lipoprotein 16 mg/dL (5-40)
== END | disposition home or self-care (01) ==
LOC: MFPLAB 08:45
PROVIDERS: PCP Family Medicine; Visit Provider Family Medicine
DX: I10 Essential (primary) hypertension (principal); N40.0 Benign prostatic hyperplasia without lower urinary tract symptoms
CPT/HCPCS: 36415; 80048; 80061; 84153

== ENCOUNTER → 2023-11-11 | Outpatient (CLI) | payer MEDICARE, SELFPAY ==
--- NOTE | 2023-11-11 10:20 | RAD_ITS ---
INDICATION: LOW BACK PAIN EXAMINATION/TECHNIQUE: X-RAY - XR Spine Lumbar 2 or 3 Views COMPARISON: CT abdomen pelvis 01/11/2019. FINDINGS: VERTEBRAE: Straightening of the normal lumbar lordosis. No acute fracture or subluxation. Disc space narrowing at all lumbar levels. Flowing osteophytes from L1 to L5. INCLUDED ABDOMEN: Included bowel gas pattern is non-obstructive. RAD/Lumbar Spine 2 or 3 Views IMPRESSION: No acute fracture. Electronically Signed: Paola Lizama MD at 21:17 EDT Reading Location ID and State: [id number] / Tel , Service support ,
== END | disposition home or self-care (01) ==
LOC: MTRAD 10:19
PROVIDERS: PCP Family Medicine; Referring Provider Family Medicine; Visit Provider Family Medicine
DX: M54.50 Low back pain, unspecified (principal)
CPT/HCPCS: 72100

== ENCOUNTER → 2023-12-30 | Outpatient (CLI) | payer MEDICARE, SELFPAY ==
[2023-12-30 11:12] LABS: Anion Gap 2 (5-15); BUN 16 mg/dL (7-18); Calcium,Total 8.9 mg/dL (8.5-10.1); Chloride 109 mmol/L (98-107); Cholesterol 143 mg/dL (200); EST Glomerular Filtration Rate 98 mL/min (>60); Est Glom Filt Rate - Afr Amer 119 mL/min (>60); Glucose 108 mg/dL (74-106); High Density Lipoprotein 44 mg/dL; Potassium 4.3 mmol/L (3.5-5.1); Sodium Level 139 mmol/L (136-145); Triglycerides 57 mg/dL; Very Low Density Lipoprotein 11 mg/dL (5-40)
== END | disposition home or self-care (01) ==
LOC: MTLAB 08:51
PROVIDERS: PCP Family Medicine; Referring Provider Family Medicine; Visit Provider Family Medicine
DX: I10 Essential (primary) hypertension (principal)
CPT/HCPCS: 36415; 80048; 80061

== ENCOUNTER → 2024-01-17 | Outpatient (CLI) | payer MEDICARE, SELFPAY ==
[2024-01-17 15:46] LABS: PSA,Total- Diagnostic 3.14 ng/mL (0.0-4.0)
== END | disposition home or self-care (01) ==
LOC: LAB 14:41
PROVIDERS: PCP Family Medicine; Referring Provider Urology; Visit Provider Urology
DX: N40.1 Benign prostatic hyperplasia with lower urinary tract symptoms (principal)
CPT/HCPCS: 36415; 84153

== ENCOUNTER → 2024-07-02 | Outpatient (CLI) | payer MEDICARE, SELFPAY ==
[2024-07-02 11:20] LABS: Absolute Lymphocyte Count 1.83 X10^3/uL (0.83-4.51); Absolute Neutrophil Count 3.3 X10^3/uL (2.0-7.7); Basophil# 0.07 X10^3/uL; Basophil% 1.1 % (0-1); Eosinophil# 0.31 X10^3/uL; Hematocrit 43.3 % (40-54); Hemoglobin 14.8 g/dL (13.0-16.5); Lymphocyte # 1.83 X10^3/ul (0.83-4.51); Lymphocyte % 29.6 % (19-41); Mean Corp Hgb Conc 34.2 g/dL (32-36); Mean Corpuscular Hgb 32.5 pg (27.0-32.0); Mean Corpuscular Volume 95.2 fL (80-94); Mean Platelet Vol. 10.5 fl (6.2-12.0); Monocyte# 0.67 X10^3/uL; Monocyte% 10.8 % (0-10); NRBC Flagged by Analyzer 0 % (0-5); Neutrophil % 53.3 % (47-70); Platelet Count 185 K/mm3 (150-450); RBC Distribution Width CV 13.2 % (11.6-14.6); RBC Distribution Width SD 46.5 fl (35.1-43.9); Red Blood Count 4.55 M/mm3 (4.6-6.2); White Blood Count 6.2 K/mm3 (4.4-11.0)
[2024-07-02 14:19] LABS: ALB/GLOB Ratio 1.4 RATIO (0.9-2.4); AST(SGOT) 18 U/L (<=37); Alanine Aminotransfer ALT/SGPT 13 U/L (<=46); Albumin, Serum 4.1 g/dL (3.4-4.8); Alkaline Phosphatase 69 U/L (40-129); Anion Gap 10 (5-15); BUN 19 mg/dL (4-19); BUN/Creat Ratio 24.4 RATIO (10-20); Calcium,Total 9.1 mg/dL (7.6-11.0); Carbon Dioxide 22.9 mmol/L (21.0-32.0); Chloride 104 mmol/L (98-108); Cholesterol 139 mg/dL (<=200); Creatinine, Serum 0.78 mg/dL (0.70-1.20); EST Glomerular Filtration Rate 90 (>60); Globulin 2.8 g/dL (2.2-4.2); Glucose 95 mg/dL (70-99); HIV Nonreactive (Nonreactive); High Density Lipoprotein 39 mg/dL; Low Density Lipoprotein Calc. 89 mg/dL; Potassium 4.1 mmol/L (3.3-5.1); Protein, Total 6.9 g/dL (5.9-8.4); Sodium Level 137 mmol/L (133-145); Syphilis Antibodies Nonreactive (Nonreactive); Total Bilirubin 0.44 mg/dL (0.00-1.30); Triglycerides 55 mg/dL; Very Low Density Lipoprotein 11 mg/dL (5-40); cholesterol:hdl ratio screen 3.55
== END | disposition home or self-care (01) ==
LOC: MFPLAB 08:46
PROVIDERS: PCP Family Medicine; Referring Provider Family Medicine; Visit Provider Family Medicine
DX: Z20.2 Contact with and (suspected) exposure to infections with a predominantly sexual mode of transmission (principal); J44.9 Chronic obstructive pulmonary disease, unspecified; I10 Essential (primary) hypertension
CPT/HCPCS: 36415; 80053; 80061; 85025; 86703; 86780; 87491; 87591

== ENCOUNTER → 2024-11-23 | Outpatient (CLI) | payer MEDICARE, SELFPAY ==
--- NOTE | 2024-11-23 09:31 | RAD_ITS ---
PROCEDURE: SHOULDER MIN 2 VIEWS 11/23/2024 REASON FOR EXAM: SHOULDER PAIN TECHNIQUE: Procedure Code: RAD Modality: DX Procedure: SHOULDER MIN 2 VIEWS Laterality: Right COMPARISON: Right shoulder study dated 06/30/2020 FINDINGS: Bones: Diffuse osteopenia of the osseous structures is noted. There are no acute fractures or dislocations. Joints: Mild arthritic changes are seen involving the acromioclavicular joint and glenohumeral joint. The acromial humeral space is unremarkable. The coracoclavicular spaces unremarkable. Soft tissues: No soft tissue swelling is noted. Soft tissues are grossly unremarkable. Other: Visualized right ribs are intact. Visualized right lung is unremarkable. RAD/Shoulder min 2 Views IMPRESSION: Diffuse osteopenia of the osseous structures is noted. There are no acute fractures or dislocations. Mild arthritic changes are seen involving the acromioclavicular joint and gleno humeral joint. Reading Location: [id number]
== END | disposition home or self-care (01) ==
LOC: MTRAD 09:29
PROVIDERS: PCP Family Medicine; Referring Provider Family Medicine; Visit Provider Family Medicine
DX: M25.511 Pain in right shoulder (principal)
CPT/HCPCS: 73030

== ENCOUNTER → 2024-12-31 | Outpatient (CLI) | payer MEDICARE, SELFPAY ==
[2024-12-31 10:33] LABS: Anion Gap 8 (5-15); BUN 19 mg/dL (4-19); BUN/Creat Ratio 25.4 RATIO (10-20); Calcium,Total 9.3 mg/dL (7.6-11.0); Carbon Dioxide 26.3 mmol/L (21.0-32.0); Chloride 104 mmol/L (98-108); Glucose 111 mg/dL (70-99); Potassium 4.4 mmol/L (3.3-5.1)
== END | disposition home or self-care (01) ==
LOC: MFPLAB 08:43
PROVIDERS: PCP Family Medicine; Visit Provider Family Medicine
DX: N52.9 Male erectile dysfunction, unspecified (principal); I10 Essential (primary) hypertension
CPT/HCPCS: 36415; 80048; 84403